=== PATIENT | female | born 1960 | race Caucasian/White ===

== ENCOUNTER 2020-07-15 09:21 | Emergency (ER) | payer OTHER, SELFPAY ==
--- NOTE | 2020-07-15 09:43 | ED.ABDPAIN ---
HPI - Abdominal Pain General Chief Complaint: Urogenital-Female Stated Complaint: Right sided lower back pain Time Seen by Provider: 07/15/20 09:42 Source: patient and family Mode of arrival: Ambulatory Limitations: no limitations History of Present Illness HPI narrative: This is a 60-year-old female who comes emergency department with complaint of right-sided back pain. Patient states she does not have any abdominal pain anteriorly. Patient states it came on fairly suddenly about 4 5 days ago. She did have vomiting but has not had any additional. She has had diarrhea once or twice daily. She has not thrown up for the past 2 days. She denies any fevers or chills. She states she has been taking Tylenol regularly around the clock. She denies any chest pain or shortness of breath. She is unaware if she has any rashes or skin changes but states her told her she had some swelling on her skin. Patient denies any dysuria, urgency, frequency or hematuria. She states she takes medication for hypertension. She denies other medical issues. She does have a remote history of low back surgery. She does have a history of prosthetic eye. Patient denies any allergies to medications. She does live out in the [facility] Related Data Previous Rx's Medication Instructions Recorded fluticasone propion-salmeterol 1 puff INH BID #60 dose 10/28/16 [Advair Diskus] lisinopril-hydrochlorothiazide 1 tab PO QDAY #30 tab 10/28/16 albuterol sulfate [Ventolin HFA] 2 puff INH Q4H PRN #3 ea 11/26/16 megestrol 20 mg tablet 40 mg PO DAILY #120 tab 05/29/18 hydrocodone-acetaminophen 1 tab PO Q6H PRN #14 tab 07/15/20 valacyclovir 1,000 mg PO Q8H #21 tab 07/15/20 Allergies Allergy/AdvReac Type Severity Reaction Status Date / Time No Known Drug Allergies Allergy Unknown Verified 07/15/20 09:48 [NO KNOWN DRUG ALLERGIES] Review of Systems Review of Systems ROS Unobtainable: All systems reviewed & are unremarkable except as noted in HPI and below Patient History Medical History Anxiety Deafness in right ear (08/30/16) Essential hypertension (08/30/16) Fatigue due to sleep pattern disturbance (08/30/16) Idiopathic hypersomnia with long sleep time Menorrhagia with irregular cycle Mild persistent asthma without complication (08/30/16) Morbid obesity with body mass index (BMI) of 40.0 to 49.9 (08/30/16) Obstructive sleep apnea Surgical History Status post discectomy Status post surgery (09/15/15) Status post surgery (11/13/16) Family History (Updated 08/04/15 @ 00:00 by Conversion Provider) Father Age: 82 Diabetes mellitus Hypertension Mother Cancer Diabetes mellitus Hypertension Social History Smoking Status: Former smoker Smoking Status: Former smoker Exam Narrative Exam Narrative: GENERAL: Alert and oriented x three, BMI of 33 female in mild distress. HEENT: Head normocephalic, atraumatic, EOMI, pupil is reactive, face symmetric, moist mucous membranes NECK: Supple, full range of motion CARDIOVASCULAR: Regular rate and rhythm without murmurs, rubs or gallops. RESPIRATORY: Breath sounds equal bilaterally, no wheezes rales or rhonchi. ABDOMEN: Soft, nontender. Normoactive bowel sounds all 4 quadrants. No guarding or rebound, rigidity, no mass : No CVA tenderness BACK: No cervical, thoracic or lumbar vertebral point tenderness. Patient has normal range of motion. Patient's pain is located over the area of rash. She does not have pain elsewhere with palpation. Patient's gait is normal. Rectal exam is deferred. EXTREMITIES: Normal range of motion, no clubbing or edema. Neurovascularly intact NEUROLOGICAL: Cranial nerves II through XII grossly intact. Moving all extremities SKIN: Warm, dry, no petechiae, patient does have erythema with 4-5 lesions on her right thoracic region in the T8-9 dermatome with several small vesicles. This correlates with the area of pain for the patient. Initial Vital Signs Initial Vital Signs: Vital Signs Temperature 98.2 F 07/15/20 09:48 Pulse Rate 87 07/15/20 09:48 Respiratory Rate 18 07/15/20 09:48 Blood Pressure 184/96 H 07/15/20 09:48 Pulse Oximetry 97 07/15/20 09:48 Course Orders Ordered: ED Orders 07/15/20 09:44 Complete Blood Count AUTO DIFF Stat Comprehensive Metabolic Panel Stat Lipase Stat Partial Thromboplastin Time Stat Prothrombin Time INR Stat 07/15/20 10:26 renal complete Stat 07/15/20 11:04 Urine Microscopic Stat Discontinued Medications Hydrocodone Bitart/Acetaminophen (Hydrocodone/Acet 5/325 Tablet) 1 tab PO NOW ONE Stop: 07/15/20 12:30 Last Admin: 07/15/20 12:33 Dose: 1 tab Documented by: LARISSA Ketorolac Tromethamine (Ketorolac 60 Mg/2 Ml Vial) 15 mg IV NOW ONE Stop: 07/15/20 10:27 Last Admin: 07/15/20 10:40 Dose: 15 mg Documented by: JOSH Reevaluation(s) Reevaluation #1: Reviewed patient's labs. She states she has chronically had hematuria she has never seen Urology. She has renal cysts which are unchanged on ultrasound imaging today and no obvious sign of kidney stone. Patient does have changes and her area of pain the skin and I suspect she has shingles today. Prescription for valacyclovir as well as some oral pain medication was given. Patient feels much better after pain medication here. We also noted her liver enzymes are mildly elevated. She did states she had wine recently and asked to follow up to have them recheck. She does not have any abdominal tenderness or changes that are suspicious for cause of her pain today. Time: 12:32 Vital Signs Vital signs: Vital Signs - 8 hr 07/15/20 11:17 Pulse Rate 87 Respiratory Rate 20 Blood Pressure 183/93 H Pulse Oximetry 97 MDM - Abdominal Pain Lab Data Attestation: I reviewed the patient's lab results. Result diagrams: 07/15/20 09:44 07/15/20 09:44 Labs: Lab Results 07/15/20 07/15/20 07/15/20 Range/Units 09:44 09:44 09:44 WBC 6.5 (4.5-11.0) X10^3/uL RBC 3.60 L (4.0-5.2) X10^6/uL Hgb 12.1 (12.0-16.0) g/dL Hct 36.1 (36-46) % MCV 100.2 H (80-100) fL MCH 33.7 (26-34) PG MCHC 33.7 (30-36) % RDW 18.7 H (11.6-14.8) % Plt Count 240 (150-400) X10^3/uL Neut % (Auto) 63.3 (50-75) % Lymph % (Auto) 21.6 L (25-40) % Forrest % (Auto) 10.9 (3-14) % Eos % (Auto) 2.7 (2-4) % Baso % (Auto) 1.5 (0-2) % Neut # (Auto) 4100 (7325-5677) /uL Lymph # (Auto) 1400 (6403-6831) /uL Forrest # (Auto) 700 (0-900) /uL Eos # (Auto) 200 (0-450) /uL Baso # (Auto) 100 (0-100) /uL PT 11.3 (10.1-12.7) SECONDS INR 1.0 (0.9-1.3) APTT 34 (26.4-36.2) SECONDS Sodium 136 L (137-145) mmol/L Potassium 4.4 (3.4-5.1) mmol/L Chloride 105 (98-107) mmol/L Carbon Dioxide 24 (22-32) mmol/L BUN 15 (7-17) mg/dL Creatinine 0.95 (0.52-1.04) mg/dL Estimated GFR 59.8 L (>60) mL/min BUN/Creatinine Ratio 15.8 (6-22) Glucose 132 H (80-110) mg/dL Calcium 10.2 (8.4-10.2) mg/dL Total Bilirubin 0.3 (0.2-1.3) mg/dL AST 78 H (14-36) IU/L ALT 78 H (<35) IU/L Alkaline Phosphatase 76 (38-126) U/L Total Protein 8.1 (6.3-8.2) g/dL Albumin 4.3 (3.5-5.0) g/dL Globulin 3.8 (1.7-4.1) g/dL Albumin/Globulin Ratio 1.1 (1.0-2.8) Lipase 273 (23-300) U/L Urine RBC (0-5/HPF) Urine WBC (0-5/HPF) Ur Squamous Epith Cells (0-5/HPF) Urine Bacteria (None) Ur Culture Indicated? 07/15/20 Range/Units 11:04 WBC (4.5-11.0) X10^3/uL RBC (4.0-5.2) X10^6/uL Hgb (12.0-16.0) g/dL Hct (36-46) % MCV (80-100) fL MCH (26-34) PG MCHC (30-36) % RDW (11.6-14.8) % Plt Count (150-400) X10^3/uL Neut % (Auto) (50-75) % Lymph % (Auto) (25-40) % Forrest % (Auto) (3-14) % Eos % (Auto) (2-4) % Baso % (Auto) (0-2) % Neut # (Auto) (8612-5005) /uL Lymph # (Auto) (6975-9033) /uL Forrest # (Auto) (0-900) /uL Eos # (Auto) (0-450) /uL Baso # (Auto) (0-100) /uL PT (10.1-12.7) SECONDS INR (0.9-1.3) APTT (26.4-36.2) SECONDS Sodium (137-145) mmol/L Potassium (3.4-5.1) mmol/L Chloride (98-107) mmol/L Carbon Dioxide (22-32) mmol/L BUN (7-17) mg/dL Creatinine (0.52-1.04) mg/dL Estimated GFR (>60) mL/min BUN/Creatinine Ratio (6-22) Glucose (80-110) mg/dL Calcium (8.4-10.2) mg/dL Total Bilirubin (0.2-1.3) mg/dL AST (14-36) IU/L ALT (<35) IU/L Alkaline Phosphatase (38-126) U/L Total Protein (6.3-8.2) g/dL Albumin (3.5-5.0) g/dL Globulin (1.7-4.1) g/dL Albumin/Globulin Ratio (1.0-2.8) Lipase (23-300) U/L Urine RBC 5-10/hpf H (0-5/HPF) Urine WBC 1-5/hpf (0-5/HPF) Ur Squamous Epith Cells 5-10 /hpf H (0-5/HPF) Urine Bacteria None seen (None) Ur Culture Indicated? Cult not indicated Point of care testing: Urine Dip Bedside Urine Glucose Negative Bedside Urine Bilirubin - Negative Bedside Urine Ketone - Negative Urine Specific [place] 1.015 Bedside Urine Occult Blood +++ Bedside Urine pH 6.0 Bedside Urine Protein ++ 100 Bedside Urine Urobilinogen - Negative Bedside Urine Nitrite - Negative Bedside Urine Leukocytes - Negative Esterase Imaging Data renal US: Radiologist's Impression: [address] [id number] ReportSigned Patient: Love Mixon RMR#: [id number]: [id number]:[id number]/Sex: 60 / FDate of Service: 07/15/20Loc: EDAccession Number: [id number] Procedure: US renal complete Ordering Provider: Sierra Gómez D.O. PROCEDURE: US RENAL COMPLETE INDICATIONS: RIGHT BACK AND FLANK PAIN TECHNIQUE: Real-time scanning was performed of the kidneys and bladder, with image documentation. COMPARISON: None. FINDINGS: Kidneys: Kidneys are normal in size. Right kidney measures 11.6 cm long; left kidney measures 12.1 cm long. Right renal cortical thickness is 1.6 cm; left renal cortical thickness is 1.2 cm. Renal cortical echotexture is normal. No hydronephrosis or nephrolithiasis. No suspicious solid mass lesions. Multiple right-sided simple cysts the largest within the inferior pole measures 3.6 x 3.8 x 3.2 centimeters. Bladder: Pre-void bladder volume is 56 mL. Pre-void images demonstrate no intraluminal masses or stones. On pre-void images, no ureteral jets are noted with color Doppler interrogation. (Of note, ureteral jets may not be detectable in up to 25% of cases due to insufficient differences in specific gravity between ureteral and bladder urine). Miscellaneous: No free pelvic fluid. IMPRESSION: Right renal simple cysts, otherwise unremarkable appearance of the kidneys and bladder. Dictated by: Han Powell D.O. on 07/15/2020 at 11:15 Approved by: Han Powell D.O. on 07/15/2020 at 11:19 [facility] Narrative Medical decision making narrative: This is a 60-year-old female who comes to the emergency department with right thoracic back pain. Patient a rash consistent with shingles and I suspect this is her source of pain she does have hematuria and discussed with patient since she lives very remotely on the [facility] labs and imaging were obtained. Labs show mildly elevated liver enzymes. Patient's labs otherwise do not show any major abnormalities. Shows signs actions or renal ultrasound shows renal cysts which patient was aware of but no obvious signs of stone. Patient had improved with Toradol here in the department. She was given 1 dose of [place] and a prescription for pain medication and valacyclovir. I did recommend that she follow up with Urology because she has had chronic hematuria which she states is not new. Discharge Plan Departure Patient Disposition: Home Clinical Impression: Shingles, Hematuria Instructions: DI for Shingles Activity Restrictions/Additional Instructions: Follow-up with your physician in the next week for recheck. Take antivirals until completely gone. Take 1 tablet every 8 hours x7 days. Prescription was sent to [facility] on [address] You may take ibuprofen up to 800 mg every 8 hours as needed for pain. If this is inadequate you may take the narcotic pain medication as prescribed. Take pain medication as prescribed you may take 1-2 tablets every 6-8 hours as needed. This medication can make you sleepy do not drive, perform hazardous activities or make any major decisions while taking it. This medication also causes constipation so take a stool softener 1-2 times daily until stools are soft and regular. Your urine does show hematuria or blood in her pee. There are cyst on your kidneys which appear unchanged but I would recommend follow-up with Urology for recheck. Also noted is your liver enzymes are slightly elevated today. Would follow up with your primary care they can recheck this in the next several weeks. Please return for fevers, worsening or uncontrolled pain, new chest pain, shortness of breath, lightheadedness or passing out, rashes that is continuing to change or crosses the midline of the body new abdominal or back pain, persistent vomiting, black or bloody stools or difficulty with urination. Prescriptions: New valacyclovir 1 gram tablet 1,000 mg PO Q8H Qty: 21 RF: 0 hydrocodone-acetaminophen 5-325 mg tablet 1 tab PO Q6H PRN (Reason: pain) Qty: 14 RF: 0 No Action lisinopril-hydrochlorothiazide 20 MG/25 MG tablet 1 tab PO QDAY Qty: 30 RF: 2 fluticasone propion-salmeterol [Advair Diskus] 250 MCG/50 MCG blister with device 1 puff INH BID Qty: 60 RF: 2 albuterol sulfate [Ventolin HFA] 90 MCG/PUFF HFA aerosol inhaler 2 puff INH Q4H PRNQty: 3 RF: 2 megestrol 20 mg tablet 40 mg PO DAILY Qty: 120 RF: 1 Referrals: Rubens Short MD [Physician] - William Lee MD [Primary Care Provider] -
[2020-07-15 09:48] VITALS: BP 184/96; PULSE 87; RESP 18; TEMP 36.8; O2SAT 97; BMI 33.3
--- NOTE | 2020-07-15 10:26 | DI.US.S_ITS ---
PROCEDURE: US RENAL COMPLETE INDICATIONS: RIGHT BACK AND FLANK PAIN TECHNIQUE: Real-time scanning was performed of the kidneys and bladder, with image documentation. COMPARISON: None. FINDINGS: Kidneys: Kidneys are normal in size. Right kidney measures 11.6 cm long; left kidney measures 12.1 cm long. Right renal cortical thickness is 1.6 cm; left renal cortical thickness is 1.2 cm. Renal cortical echotexture is normal. No hydronephrosis or nephrolithiasis. No suspicious solid mass lesions. Multiple right-sided simple cysts the largest within the inferior pole measures 3.6 x 3.8 x 3.2 centimeters. Bladder: Pre-void bladder volume is 56 mL. Pre-void images demonstrate no intraluminal masses or stones. On pre-void images, no ureteral jets are noted with color Doppler interrogation. (Of note, ureteral jets may not be detectable in up to 25% of cases due to insufficient differences in specific gravity between ureteral and bladder urine). Miscellaneous: No free pelvic fluid. IMPRESSION: Right renal simple cysts, otherwise unremarkable appearance of the kidneys and bladder. Dictated by: Han Powell D.O. on 07/15/2020 at 11:15 Approved by: Han Powell D.O. on 07/15/2020 at 11:19
[2020-07-15 10:40] LABS: Prothrombin Time 11.3 SECONDS (10.1-12.7)
[2020-07-15] MEDS: KETOROLAC 60 MG/2 ML VIAL 15 MG IV (10:40)
[2020-07-15 10:42] LABS: Add Manual Diff / Slide Review NO; Basophils Absolute Auto 100 /uL (0-100); Basophils Percent Auto 1.5 % (0-2); Eosinophils Absolute Auto 200 /uL (0-450); Eosinophils Percent Auto 2.7 % (2-4); Hematocrit 36.1 % (36-46); Hemoglobin 12.1 g/dL (12.0-16.0); Lymphocytes Absolute Auto 1400 /uL (1100-4500); Lymphocytes Percent Auto 21.6 % (25-40); Mean Corpuscular HGB Conc 33.7 % (30-36); Mean Corpuscular Hemoglobin 33.7 PG (26-34); Mean Corpuscular Volume 100.2 fL (80-100); Monocytes Absolute Auto 700 /uL (0-900); Monocytes Percent Auto 10.9 % (3-14); Neutrophils Absolute Auto 4100 /uL (1500-7000); Neutrophils Percent Auto 63.3 % (50-75); PTT Partial Thromboplastin Tim 34 SECONDS (26.4-36.2); Platelet Count 240 X10^3/uL (150-400); Red Cell Distribution Width 18.7 % (11.6-14.8); White Blood Cell Count 6.5 X10^3/uL (4.5-11.0)
[2020-07-15 10:51] LABS: Alanine Aminotransferase 78 IU/L (<35); Albumin 4.3 g/dL (3.5-5.0); Albumin Globulin Ratio 1.1 (1.0-2.8); Alkaline Phosphatase 76 U/L (38-126); Aspartate Aminotransferase 78 IU/L (14-36); BUN Creatinine Ratio 15.8 (6-22); Bilirubin Total 0.3 mg/dL (0.2-1.3); Blood Urea Nitrogen 15 mg/dL (7-17); Calcium 10.2 mg/dL (8.4-10.2); Carbon Dioxide 24 mmol/L (22-32); Chloride 105 mmol/L (98-107); Estimated Glomerular Filt Rate 59.8 mL/min (>60); Globulin 3.8 g/dL (1.7-4.1); Glucose 132 mg/dL (80-110); HEMOLYSIS 15 (0-50); Lipase 273 U/L (23-300); Potassium 4.4 mmol/L (3.4-5.1); Sodium 136 mmol/L (137-145); Total Protein 8.1 g/dL (6.3-8.2)
[2020-07-15 11:06] LABS: Bacteria Urine None Seen
[2020-07-15 11:15] LABS: RBC Urine 5-10/HPF (0-5/HPF)
[2020-07-15 11:16] LABS: Culture Indicated Urine Cult Not Indicated; Squamous Epithelial Cell Urine 5-10 /HPF (0-5/HPF); WBC Urine 1-5/HPF (0-5/HPF)
[2020-07-15 11:17] VITALS: BP 183/93; PULSE 87; RESP 20; O2SAT 97
[2020-07-15] MEDS: HYDROCODONE/ACET 5/325 TABLET 1 TAB PO (12:33)
== END 2020-07-15 12:40 | disposition home or self-care (01) ==
PROVIDERS: Emergency Provider Emergency Medicine; PCP Family Medicine
DX: B02.9 Zoster without complications (principal); R31.9 Hematuria, unspecified; R19.7 Diarrhea, unspecified
CPT/HCPCS: 36415; 76770; 80053; 81003; 81015; 83690; 85025; 85610; 85730; 96374; 99284; J1885

== ENCOUNTER 2021-05-30 18:18 | Observation (INO) | payer OTHER, MEDICAID, SELFPAY ==
[2021-05-30] VITALS (9 sets, daily range): BP systolic 160–184; BP diastolic 72–94; PULSE 81–100; RESP 10–22; TEMP 36.8–36.9; O2SAT 95–100; BMI 44.8
--- NOTE | 2021-05-30 18:34 | DI.RAD.S_ITS ---
PROCEDURE: XR CHEST 1V INDICATIONS: chest pain TECHNIQUE: One view of the chest was acquired. COMPARISON: None. FINDINGS: Surgical changes and devices: None. Lungs and pleura: Lungs are clear. No pleural effusions or pneumothorax. Mediastinum: Mediastinal contours appear normal. Heart size is normal. Bones and chest wall: No suspicious bony lesions. Overlying soft tissues appear unremarkable. IMPRESSION: No acute cardiopulmonary disease. Dictated by: Claribel Tierney M.D. on 05/30/2021 at 19:46 Approved by: Claribel Tierney M.D. on 05/30/2021 at 19:46
--- NOTE | 2021-05-30 18:38 | DI.CT.S_ITS ---
PROCEDURE: CT HEAD/BRAIN WO CON INDICATIONS: confusion with right eye drooping TECHNIQUE: Noncontrast 4.5 mm thick angled axial sections acquired from the foramen magnum to the vertex, with coronal and sagittal reformats. For radiation dose reduction, the following was used: automated exposure control, adjustment of mA and/or kV according to patient size. COMPARISON: None. FINDINGS: Image quality: Excellent. CSF spaces: Basal cisterns are patent. No extra-axial fluid collections. Ventricles are normal in size and shape. Brain: No midline shift. No intracranial masses or hemorrhage. Chi-white matter interface is normal. Minimal encephalomalacia and gliosis noted in the inferior right frontal lobe. Skull and face: Calvarium and visualized facial bones are intact, without suspicious lesions. Right orbital globe prosthesis noted in place. Sinuses: Visualized sinuses and mastoids are clear. 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 Right globe prosthesis in place Approved by: Armand Byers M.D. on 05/30/2021 at 18:04
--- NOTE | 2021-05-30 18:43 | DI.RAD.S_ITS ---
PROCEDURE: XR FOOT RT MIN 3V INDICATIONS: Bruising TECHNIQUE: Three views of the foot were acquired. COMPARISON: None. FINDINGS: Bones: No fractures or dislocations. No suspicious bony lesions. Moderate size plantar calcaneal spur. There are moderate degenerative changes at the 1st TMT and mild degenerative changes at the 1st MTP joint. Soft tissues: No tibiotalar joint effusion. Achilles tendon appears normal. IMPRESSION: 1. No visible fractures. 2. Degenerative changes along the medial foot. Dictated by: Claribel Tierney M.D. on 05/30/2021 at 19:42 Approved by: Claribel Tierney M.D. on 05/30/2021 at 19:44
--- NOTE | 2021-05-30 18:43 | DI.RAD.S_ITS ---
PROCEDURE: XR FOOT LT MIN 3V INDICATIONS: Bruising TECHNIQUE: Three views of the foot were acquired. COMPARISON: None. FINDINGS: Bones: No fractures or dislocations. No suspicious bony lesions. Moderate degenerative change at the 1st MTP joint. Moderate plantar calcaneal spur. Soft tissues: No tibiotalar joint effusion. Achilles tendon appears normal. IMPRESSION: 1. No visible fractures. 2. Degenerative change at the 1st MTP joint. 3. If there is continued concern for occult fracture, MR of the foot is recommended to assess for acute edema. Dictated by: Claribel Tierney M.D. on 05/30/2021 at 19:44 Approved by: Claribel Tierney M.D. on 05/30/2021 at 19:46
--- NOTE | 2021-05-30 19:19 | PC.NURSE ---
Pt confused and poor historian. states she fell about 2 days ago although they cannot remember. she was brought to [facility] from [facility]. she was to be DC's to a SNF however she refused and instead went home, she arrives today with weakness, increased confusion, bruising all over body. c/o pain in her back and her L leg. IV placed and labs drawn, attached to cardiac monitoring, rec'd CT head and XRs of feet for extensive bruising and swelling. able to answer simple questions. SRIRAMRNelida
[2021-05-30 19:28] LABS: Add Manual Diff / Slide Review NO; Basophils Absolute Auto 100 /uL (0-100); Basophils Percent Auto 0.9 % (0-2); Eosinophils Absolute Auto 100 /uL (0-450); Eosinophils Percent Auto 1.3 % (2-4); Hematocrit 26.1 % (36-46); Hemoglobin 8.7 g/dL (12.0-16.0); Lymphocytes Absolute Auto 1400 /uL (1100-4500); Lymphocytes Percent Auto 14.8 % (25-40); Mean Corpuscular HGB Conc 33.4 % (30-36); Mean Corpuscular Hemoglobin 36.5 PG (26-34); Mean Corpuscular Volume 109.3 fL (80-100); Monocytes Absolute Auto 600 /uL (0-900); Monocytes Percent Auto 6.4 % (3-14); Neutrophils Absolute Auto 7300 /uL (1500-7000); Neutrophils Percent Auto 76.6 % (50-75); Platelet Count 599 X10^3/uL (150-400); Red Blood Cell Count 2.39 X10^6/uL (4.0-5.2); Red Cell Distribution Width 26.8 % (11.6-14.8); White Blood Cell Count 9.5 X10^3/uL (4.5-11.0)
[2021-05-30 19:33] LABS: Ammonia (NH3) < 9 umol/L (9-30)
--- NOTE | 2021-05-30 19:36 | ED.WEAKNESS ---
HPI - Weakness General Chief complaint: Weakness Stated complaint: weakness Time Seen by Provider: 05/30/21 19:04 Source: EMS Mode of arrival: EMS History of Present Illness HPI Narrative: Patient brought in baths from home. Lives at [facility]. [facility]. She was monitored there for GI bleed. Was seen by gastroenterology. Patient was very weak a few days ago and was flown from [facility] to [facility]. She was urged to stay for balance of her treatment. She states she went home today against medical advice. I spoke with , Yehuda, by phone, she was not home very long, she passed out in the kitchen. She has felt dizzy and lightheaded before falling. Denies any head pain or neck pain. Has diffuse bruising to the lower extremities. At this time trying to get more information from [facility]. Whether patient got EGD and colonoscopy or transfusions. Related Data Home Medications Medication Instructions Recorded Confirmed carvedilol 12.5 mg tablet 12.5 mg PO BID 01/04/21 lisinopril 40 mg tablet 40 mg PO DAILY 02/01/21 02/01/21 Previous Rx's Medication Instructions Recorded fluticasone 250 mcg-salmeterol 50 1 puff INH BID #60 dose 10/28/16 mcg/dose blistr powdr for inhalation (Advair Diskus) lisinopril 20 1 tab PO QDAY #30 tab 10/28/16 mg-hydrochlorothiazide 25 mg tablet albuterol sulfate 90 mcg/actuation 2 puff INH Q4H PRN #3 ea 11/26/16 aerosol inhaler (Ventolin HFA) megestrol 20 mg tablet 40 mg PO DAILY #120 tab 05/29/18 valacyclovir 1 gram tablet 1,000 mg PO Q8H #21 tab 07/25/20 Allergies Allergy/AdvReac Type Severity Reaction Status Date / Time aspirin Allergy Unknown Verified 05/30/21 18:54 codeine Allergy Unknown Verified 05/30/21 18:54 hydrocodone Allergy Unknown Verified 05/30/21 18:54 Review of Systems Review of Systems Narrative: GENERAL: Denies chills, positive for fatigue, malaise, negative for fever, sweats. HEENT: Denies sinus pain, ear pain, sore throat RESPIRATORY: Denies dyspnea, cough CARDIOVASCULAR: Denies chest pain, palpitations GASTROINTESTINAL: Denies nausea, vomiting, abdominal pain, negative for bloody or black stools : Denies dysuria, frequency, hematuria MUSCULOSKELETAL: denies muscle or bony pain SKIN: Denies rash, skin lesions NEUROLOGIC: Denies weakness, numbness ROS Unobtainable: All systems reviewed & are unremarkable except as noted in HPI and below Patient History Medical History Anxiety Deafness in right ear (08/30/16) Essential hypertension (08/30/16) Fatigue due to sleep pattern disturbance (08/30/16) Idiopathic hypersomnia with long sleep time Menorrhagia with irregular cycle Mild persistent asthma without complication (08/30/16) Morbid obesity with body mass index (BMI) of 40.0 to 49.9 (08/30/16) Obstructive sleep apnea Surgical History Status post discectomy Status post surgery (09/15/15) Status post surgery (11/13/16) Family History Father Age: 83 Diabetes mellitus Hypertension Mother Cancer Diabetes mellitus Hypertension Social History household members: spouse Smoking Status: Former smoker alcohol intake: current Smoking Status: Former smoker alcohol intake frequency: a few times a month Substance Use Type: marijuana Exam Narrative Exam Narrative: GENERAL: in no distress, not toxic not dyspneic HEAD: Normocephalic. EYES: Pupils equal round No scleral icterus. ENT: Mucous membranes moist. NECK: Trachea midline. CARDIOVASCULAR: Regular rate and rhythm without murmurs RESPIRATORY: Clear to auscultation. Breath sounds equal bilaterally. No wheezes, rales, or rhonchi. GASTROINTESTINAL: Abdomen soft, non-tender EXTREMITIES: No gross deformities. Diffuse bruising lower extremities from knees to toes. BACK: No flank tenderness. NEURO: AOx3. SKIN: Warm and dry, no bruising on the face back chest abdomen upper extremities. PSYCH: Not anxious, is cooperative Initial Vital Signs Initial Vital Signs: Vital Signs Pulse Rate 96 H 05/30/21 18:25 Respiratory Rate 10 L 05/30/21 18:25 Pulse Oximetry 100 03/02/22 18:25 Course Orders Ordered: ED Orders 05/30/21 18:34 XR chest 1V Stat Partial Thromboplastin Time Stat Prothrombin Time INR Stat EKG-12 Lead Stat 05/30/21 18:38 CT head/brain wo con Stat 05/30/21 18:43 XR foot LT min 3V Stat XR foot RT min 3V Stat 05/30/21 18:55 COVID19 -Nasal swab/Pre-Proc Stat 05/30/21 19:10 Ammonia (NH3) Stat Complete Blood Count AUTO DIFF Stat Comprehensive Metabolic Panel Stat ETOH [Ethanol (ETOH)] Stat Lipase Stat Magnesium Stat Troponin & CK Cardiac Panel Stat 05/30/21 19:39 XR tibia fibula LT 2V Stat Acetaminophen (Acetaminophen 325 Mg Tablet) 650 mg PO Q6HR THERESE Last Admin: 05/31/21 00:48 Dose: 650 mg Documented by: CHIDI Hydrocodone Bitart/Acetaminophen (Hydrocodone/Acet 10/325 Tablet) 1 tab PO Q4HR PRN PRN Reason: Pain, Severe (7-10) Albuterol (Albuterol 2.5 Mg/3 Ml Neb (Adult)) 2.5 mg INH Q4H PRN PRN Reason: Wheezing Carvedilol (Carvedilol 12.5 Mg Tablet) 12.5 mg PO BID [facility] Docusate Sodium (Docusate 100 Mg Capsule) 100 mg PO BID [facility] Enoxaparin Sodium (Enoxaparin 40 Mg/0.4 Ml Syringe) 40 mg SUBCUT DAILY [facility] Lisinopril (Lisinopril 20 Mg Tablet) 40 mg PO DAILY [facility] Morphine Sulfate (Morphine 2 Mg/Ml Inj) 2 mg IV Q4H PRN PRN Reason: Breakthrough pain only (8-10) Last Admin: 05/31/21 00:51 Dose: 2 mg Documented by: CHIDI Naloxone HCl (Naloxone 0.4 Mg/Ml Vial) 0.2 mg IV Q2MIN PRN PRN Reason: Opiate Reversal Ondansetron HCl (Ondansetron 4 Mg/2 Ml Inj) 4 mg IV Q8HR PRN PRN Reason: Nausea And Vomiting Discontinued Medications Sodium Chloride (Normal Saline 0.9%) 500 mls @ 1,000 mls/hr IV BOLUS ONE Stop: 05/30/21 22:03 Last Infusion: 05/30/21 23:00 Dose: 0 mls/hr Documented by: Admin: 05/30/21 21:36 Dose: 1,000 mls/hr Documented by: CRISTAL Reevaluation(s) Reevaluation #1: I did speak with . He is not a good historian. He cannot recall patient came home today or 2 days ago. He is unsure which she all had done. The same is true with the patient, she cannot recall what was done with a she went home. Consultations Consultation #1: Spoke with hospitalist here. dr almonte, will see patient and evaluate for admission Time: 21:55 Vital Signs Vital signs: Vital Signs - 8 hr 05/30/21 18:25 05/30/21 18:27 05/30/21 18:30 Temperature 98.5 F Pulse Rate 96 H 100 H 92 H Respiratory Rate 10 L 12 12 Blood Pressure 160/72 H 160/72 H Pulse Oximetry 100 100 100 05/30/21 19:03 05/30/21 19:10 05/30/21 19:15 Temperature Pulse Rate 93 H 92 H 92 H Respiratory Rate 20 20 14 Blood Pressure 178/82 H 182/81 H Pulse Oximetry 99 100 99 05/30/21 20:00 Temperature Pulse Rate 81 Respiratory Rate 22 Blood Pressure 182/92 H Pulse Oximetry 95 MDM - Weakness Lab Data Result diagrams: 05/30/21 19:10 05/30/21 19:10 Labs: Lab Results 05/30/21 05/30/21 05/30/21 Range/Units 18:34 18:55 19:10 WBC 9.5 (4.5-11.0) X10^3/uL RBC 2.39 L (4.0-5.2) X10^6/uL Hgb 8.7 L (12.0-16.0) g/dL Hct 26.1 L (36-46) % MCV 109.3 H (80-100) fL MCH 36.5 H (26-34) PG MCHC 33.4 (30-36) % RDW 26.8 H (11.6-14.8) % Plt Count 599 H (150-400) X10^3/uL Neut % (Auto) 76.6 H (50-75) % Lymph % (Auto) 14.8 L (25-40) % [place] % (Auto) 6.4 (3-14) % Eos % (Auto) 1.3 L (2-4) % Baso % (Auto) 0.9 (0-2) % Neut # (Auto) 7300 H (6802-4322) /uL Lymph # (Auto) 1400 (1027-7788) /uL [place] # (Auto) 600 (0-900) /uL Eos # (Auto) 100 (0-450) /uL Baso # (Auto) 100 (0-100) /uL RBC Morphology See below Polychromasia 1+ H Anisocytosis 2+ H Macrocytosis 1+ H PT 12.6 (10.1-12.7) SECONDS INR 1.1 (0.9-1.3) APTT 29 (26.4-36.2) SECONDS Sodium (137-145) mmol/L Potassium (3.4-5.1) mmol/L Chloride (98-107) mmol/L Carbon Dioxide (22-32) mmol/L BUN (7-17) mg/dL Creatinine (0.52-1.04) mg/dL Estimated GFR (>60) mL/min BUN/Creatinine Ratio (6-22) Glucose (80-110) mg/dL Calcium (8.4-10.2) mg/dL Magnesium (1.6-2.3) mg/dL Total Bilirubin (0.2-1.3) mg/dL AST (14-36) IU/L ALT (<35) IU/L Alkaline Phosphatase (38-126) U/L Ammonia (9-30) umol/L Total Creatine Kinase (30-135) U/L CK-MB (CK-2) CK-MB (CK-2) Rel Index Troponin I (0.01-0.034) ng/mL Total Protein (6.3-8.2) g/dL Albumin (3.5-5.0) g/dL Globulin (1.7-4.1) g/dL Albumin/Globulin Ratio (1.0-2.8) Lipase (23-300) U/L Ethyl Alcohol ( - 10) mg/dL SARS-CoV-2 (PCR) Negative (Negative) 05/30/21 05/30/21 05/30/21 Range/Units 19:10 19:10 19:10 WBC (4.5-11.0) X10^3/uL RBC (4.0-5.2) X10^6/uL Hgb (12.0-16.0) g/dL Hct (36-46) % MCV (80-100) fL MCH (26-34) PG MCHC (30-36) % RDW (11.6-14.8) % Plt Count (150-400) X10^3/uL Neut % (Auto) (50-75) % Lymph % (Auto) (25-40) % [place] % (Auto) (3-14) % Eos % (Auto) (2-4) % Baso % (Auto) (0-2) % Neut # (Auto) (8231-4520) /uL Lymph # (Auto) (8840-5161) /uL [place] # (Auto) (0-900) /uL Eos # (Auto) (0-450) /uL Baso # (Auto) (0-100) /uL RBC Morphology Polychromasia Anisocytosis Macrocytosis PT (10.1-12.7) SECONDS INR (0.9-1.3) APTT (26.4-36.2) SECONDS Sodium 140 (137-145) mmol/L Potassium 3.2 L (3.4-5.1) mmol/L Chloride 109 H (98-107) mmol/L Carbon Dioxide 27 (22-32) mmol/L BUN 6 L (7-17) mg/dL Creatinine 0.89 (0.52-1.04) mg/dL Estimated GFR > 60.0 (>60) mL/min BUN/Creatinine Ratio 6.7 (6-22) Glucose 114 H (80-110) mg/dL Calcium 8.9 (8.4-10.2) mg/dL Magnesium 1.7 (1.6-2.3) mg/dL Total Bilirubin 0.4 (0.2-1.3) mg/dL AST 60 H (14-36) IU/L ALT 35 H (<35) IU/L Alkaline Phosphatase 115 (38-126) U/L Ammonia < 9 L (9-30) umol/L Total Creatine Kinase < 20 L (30-135) U/L CK-MB (CK-2) TNP CK-MB (CK-2) Rel Index TNP Troponin I < 0.012 (0.01-0.034) ng/mL Total Protein 6.6 (6.3-8.2) g/dL Albumin 3.1 L (3.5-5.0) g/dL Globulin 3.5 (1.7-4.1) g/dL Albumin/Globulin Ratio 0.9 L (1.0-2.8) Lipase 93 (23-300) U/L Ethyl Alcohol < 10 ( - 10) mg/dL SARS-CoV-2 (PCR) (Negative) Imaging Data CT scan - head: Radiologist Impression: [address] [address] [address] Scan Report Signed Patient: Love Mixon MR#: [id number] : 1960 Acct:[id number] Age/Sex: 60 / F Date of Service: 05/30/21 Loc: ED Accession Number: [id number] ?? Procedure: CT head/brain wo con Ordering Provider: Sandra Dyer D.O. PROCEDURE:? CT HEAD/BRAIN WO CON ? INDICATIONS:? confusion with right eye drooping ? TECHNIQUE:? Noncontrast 4.5 mm thick angled axial sections acquired from the foramen magnum to the vertex, with coronal and sagittal reformats.? For radiation dose reduction, the following was used:? automated exposure control, adjustment of mA and/or kV according to patient size.? ? COMPARISON:? None. ? FINDINGS:? Image quality:? Excellent.? ? CSF spaces:? Basal cisterns are patent.? No extra-axial fluid collections.? Ventricles are normal in size and shape.? ? Brain:? No midline shift.? No intracranial masses or hemorrhage.? Chi-white matter interface is normal.? Minimal encephalomalacia and gliosis noted in the inferior right frontal lobe. ? Skull and face:? Calvarium and visualized facial bones are intact, without suspicious lesions.? Right orbital globe prosthesis noted in place. ? Sinuses:? Visualized sinuses and mastoids are clear.? ? IMPRESSION:? ? 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 No acute intracranial hemorrhage or mass effect. ? Right globe prosthesis in place ? ? ? Approved by: Armand Byers M.D. on 05/30/2021 at 18:04? Chest x-ray: Radiologist Impression: [address] [address] XRay Report Signed Patient: Love Mixon MR#: [id number] : 1960 Acct:[id number] Age/Sex: 60 / F Date of Service: 05/30/21 Loc: ED Accession Number: [id number] ?? Procedure: XR chest 1V Ordering Provider: Sandra Dyer D.O. PROCEDURE:? XR CHEST 1V ? INDICATIONS:? chest pain ? TECHNIQUE:? One view of the chest was acquired.? ? COMPARISON:? None. ? FINDINGS:? ? Surgical changes and devices:? None.? ? Lungs and pleura:? Lungs are clear.? No pleural effusions or pneumothorax.? ? Mediastinum:? Mediastinal contours appear normal.? Heart size is normal.? ? Bones and chest wall:? No suspicious bony lesions.? Overlying soft tissues appear unremarkable.? ? IMPRESSION:? No acute cardiopulmonary disease.? ? ? Dictated by: Claribel Tierney M.D. on 05/30/2021 at 19:46 ? ? Approved by: lCaribel Tierney M.D. on 05/30/2021 at 19:46 ? Extremity x-ray #1: Radiologist Impression: [address] [address] XRay Report Signed Patient: Love Mixon MR#: [id number] : 1960 Acct:[id number] Age/Sex: 60 / F Date of Service: 05/30/21 Loc: ED Accession Number: [id number] ?? Procedure: XR foot LT min 3V Ordering Provider: Sandra Dyer D.O. PROCEDURE:? XR FOOT LT MIN 3V ? INDICATIONS:? Bruising ? TECHNIQUE:? Three views of the foot were acquired.? ? COMPARISON:? None. ? FINDINGS:? ? Bones:? No fractures or dislocations.? No suspicious bony lesions.? Moderate degenerative change at the 1st MTP joint.? Moderate plantar calcaneal spur. ? Soft tissues:? No tibiotalar joint effusion.? Achilles tendon appears normal.? ? ? IMPRESSION:? ? 1. No visible fractures. ? 2. Degenerative change at the 1st MTP joint. ? 3. If there is continued concern for occult fracture, MR of the foot is recommended to assess for acute edema.? ? ? Dictated by: Claribel Tierney M.D. on 05/30/2021 at 19:44 ? ? Approved by: Claribel Tierney M.D. on 05/30/2021 at 19:46 ? Extremity x-ray #2: Radiologist Impression: [address] [address] XRay Report Signed Patient: Love Mixon MR#: [id number] : 1960 Acct:[id number] Age/Sex: 60 / F Date of Service: 05/30/21 Loc: ED Accession Number: [id number] ?? Procedure: XR foot RT min 3V Ordering Provider: Sandra Dyer D.O. PROCEDURE:? XR FOOT RT MIN 3V ? INDICATIONS:? Bruising ? TECHNIQUE:? Three views of the foot were acquired.? ? COMPARISON:? None. ? FINDINGS:? ? Bones:? No fractures or dislocations.? No suspicious bony lesions.? Moderate size plantar calcaneal spur.? There are moderate degenerative changes at the 1st TMT and mild degenerative changes at the 1st MTP joint.? ? Soft tissues:? No tibiotalar joint effusion.? Achilles tendon appears normal.? ? ? IMPRESSION:? ? 1. No visible fractures. ? 2. Degenerative changes along the medial foot.? ? ? Dictated by: Claribel Teirney M.D. on 05/30/2021 at 19:42 ? ? Approved by: Claribel Tierney M.D. on 05/30/2021 at 19:44 ? Extremity x-ray #3: Radiologist Impression: [address] [address] XRay Report Signed Patient: Love Mixon MR#: [id number] : 1960 Acct:[id number] Age/Sex: 60 / F Date of Service: 05/30/21 Loc: ED Accession Number: [id number] ?? Procedure: XR tibia fibula LT 2V Ordering Provider: William Mcqueen MD PROCEDURE:? XR TIBIA FIBULA LT 2V ? INDICATIONS:? Pain/injury ? TECHNIQUE:? 2 views of the tibia and fibula were acquired.? ? COMPARISON:? None. ? FINDINGS:? ? Bones:? No fractures or dislocations.? No suspicious bony lesions.? ? Soft tissues:? No suspicious soft tissue calcifications or masses.? ? IMPRESSION:? No acute fracture. No osseous lesion. If symptoms and/or clinical suspicion for pathology persist, further assessment with repeat, or advanced imaging (e.g., CT, MRI, or bone scan) may be helpful for further assessment. ? ? Dictated by: Manisha Martinez M.D. on 05/30/2021 at 20:12 ? ? Approved by: Manisha Martinez M.D. on 05/30/2021 at 20:12 ? ECG Data Interpretation: Normal sinus rhythm normal EKG rate [address] elevation or depression MDM Narrative Medical decision making narrative: Appropriate for admission or transfer. Patient is not safe to go home. Patient not at baseline according to . With cognition. At this time patient not requiring endoscopy. Hemoglobin is stable. I did review faxed discharge summary from [facility]. Patient did have EGD. Patient was recommended to go to SNF, failed PT and OT at their facility. Discharge Plan Departure Patient Disposition: Admitted as Observation Clinical Impression: Altered mental status Admit Date/Time: 05/30/21 22:45 Admit Provider: Yousuf Almonte
[2021-05-30 19:39] LABS: INR 1.1 (0.9-1.3); Prothrombin Time 12.6 SECONDS (10.1-12.7)
--- NOTE | 2021-05-30 19:39 | DI.RAD.S_ITS ---
PROCEDURE: XR TIBIA FIBULA LT 2V INDICATIONS: Pain/injury TECHNIQUE: 2 views of the tibia and fibula were acquired. COMPARISON: None. FINDINGS: Bones: No fractures or dislocations. No suspicious bony lesions. Soft tissues: No suspicious soft tissue calcifications or masses. IMPRESSION: No acute fracture. No osseous lesion. If symptoms and/or clinical suspicion for pathology persist, further assessment with repeat, or advanced imaging (e.g., CT, MRI, or bone scan) may be helpful for further assessment. Dictated by: Manisha Martinez M.D. on 05/30/2021 at 20:12 Approved by: Manisha Martinez M.D. on 05/30/2021 at 20:12
[2021-05-30 19:41] LABS: PTT Partial Thromboplastin Tim 29 SECONDS (26.4-36.2)
[2021-05-30 19:42] LABS: Alanine Aminotransferase 35 IU/L (<35); Albumin 3.1 g/dL (3.5-5.0); Albumin Globulin Ratio 0.9 (1.0-2.8); Alkaline Phosphatase 115 U/L (38-126); Aspartate Aminotransferase 60 IU/L (14-36); BUN Creatinine Ratio 6.7 (6-22); Bilirubin Total 0.4 mg/dL (0.2-1.3); Blood Urea Nitrogen 6 mg/dL (7-17); Calcium 8.9 mg/dL (8.4-10.2); Carbon Dioxide 27 mmol/L (22-32); Chloride 109 mmol/L (98-107); Creatine Kinase < 20 U/L (30-135); Estimated Glomerular Filt Rate > 60.0 mL/min (>60); Ethanol (ETOH) < 10 mg/dL; Globulin 3.5 g/dL (1.7-4.1); Glucose 114 mg/dL (80-110); HEMOLYSIS < 15 (0-50); Lipase 93 U/L (23-300); Magnesium 1.7 mg/dL (1.6-2.3); Potassium 3.2 mmol/L (3.4-5.1); Sodium 140 mmol/L (137-145); Total Protein 6.6 g/dL (6.3-8.2)
[2021-05-30 19:47] LABS: COVID19 -Nasal RAPID Negative (Negative)
[2021-05-30 19:53] LABS: Troponin I < 0.012 ng/mL (0.01-0.034)
[2021-05-30 19:57] LABS: Anisocytosis 2+; Macrocytosis 1+; Polychromasia 1+
[2021-05-30] MEDS: SODIUM CHLORIDE 0.9% 500 ML 1000 ML IV (21:36)
[2021-05-31] VITALS (8 sets, daily range): BP systolic 123–155; BP diastolic 57–82; PULSE 74–95; RESP 16–18; TEMP 36.1–36.8; O2SAT 96–99; BMI 44.8
--- NOTE | 2021-05-31 00:05 | P.HP_ITS ---
History of Present Illness History of Present Illness Date Patient Seen: 05/30/21 Time Patient Seen: 22:30 Chief complaint: weakness Narrative: Pt with history of falls admitted to hospital in [place] then left AMA mid GI workup, somehow got home to [place] where she had some more falls evidently today she is heavily bruised and confused. trauma series was negative for fracture she is disoriented not a good historian not safe to go home. Patient History Medical History Anxiety Deafness in right ear (08/30/16) Essential hypertension (08/30/16) Fatigue due to sleep pattern disturbance (08/30/16) Idiopathic hypersomnia with long sleep time Menorrhagia with irregular cycle Mild persistent asthma without complication (08/30/16) Morbid obesity with body mass index (BMI) of 40.0 to 49.9 (08/30/16) Obstructive sleep apnea Surgical History Status post discectomy Status post surgery (09/15/15) Status post surgery (11/13/16) Family & Social History Family History Father Age: 83 Diabetes mellitus Hypertension Mother Cancer Diabetes mellitus Hypertension Social History: household members spouse Safety & Behavioral: Feels Safe in Current Yes Environment Been Physically Hurt or No Threatened By a Person Suicidal Ideation Description None Suicide Plan Description No Plan Tobacco & Substance use: Tobacco type cigarettes Smoking Status Former smoker alcohol intake current alcohol intake frequency a few times a month Substance Use Type marijuana Meds Home Medications and Allergies Home Medications Medication Instructions Recorded Confirmed Type fluticasone 250 mcg-salmeterol 50 1 puff INH BID #60 dose 10/28/16 07/25/20 Rx mcg/dose blistr powdr for inhalation (Advair Diskus) lisinopril 20 1 tab PO QDAY #30 tab 10/28/16 07/25/20 Rx mg-hydrochlorothiazide 25 mg tablet albuterol sulfate 90 mcg/actuation 2 puff INH Q4H PRN #3 ea 11/26/16 07/25/20 Rx aerosol inhaler (Ventolin HFA) megestrol 20 mg tablet 40 mg PO DAILY #120 tab 05/29/18 07/25/20 Rx valacyclovir 1 gram tablet 1,000 mg PO Q8H #21 tab 07/25/20 07/25/20 Rx carvedilol 12.5 mg tablet 12.5 mg PO BID 01/04/21 History lisinopril 40 mg tablet 40 mg PO DAILY 02/01/21 02/01/21 History Allergies Allergy/AdvReac Type Severity Reaction Status Date / Time aspirin Allergy Unknown Verified 05/30/21 18:54 codeine Allergy Unknown Verified 05/30/21 18:54 hydrocodone Allergy Unknown Verified 05/30/21 18:54 Review of Systems Review of Systems Narrative: all systems reviewed and negative except as otherwise documented in HPI Exam Vital Signs (past 8 hours): - 05/30/21 18:25 05/30/21 18:27 05/30/21 18:30 Temperature 98.5 F Pulse Rate 96 H 100 H 92 H Respiratory Rate 10 L 12 12 Blood Pressure 160/72 H 160/72 H Pulse Oximetry 100 100 100 05/30/21 19:03 05/30/21 19:10 05/30/21 19:15 Temperature Pulse Rate 93 H 92 H 92 H Respiratory Rate 20 20 14 Blood Pressure 178/82 H 182/81 H Pulse Oximetry 99 100 99 05/30/21 20:00 05/30/21 23:05 Temperature Pulse Rate 81 84 Respiratory Rate 22 18 Blood Pressure 182/92 H 184/94 H Pulse Oximetry 95 95 Oxygen Delivery Method Room Air Narrative Exam Narrative: interactive elder laying on bed HENMT Other: bruising on face suggests recent head impact Eyes Periorbital: periorbital findings abnormal (R lateral bruising and swelling) Other: eyes appear grossly ok Resp Other: clear to auscultation bilaterally Cardio Other: regular rate and rhythm S1/S2 GI Other: soft nontender nondistended normal bowel sounds Skin Other: contusions on all extremities and R periocular area Neuro General: patient alert, patient awake and patient confused (not sure of year p resident day or location) Extrem Other: bruised but full ROM Psych Appearance: disheveled Speech and Movement: speech and movement normal Affect: normal affect Attitude: cooperative Objective Labs Result Diagrams: 05/30/21 19:10 05/30/21 19:10 Labs: Laboratory Results - last 24 hr 05/30/21 05/30/21 05/30/21 18:34 18:55 19:10 WBC 9.5 RBC 2.39 L Hgb 8.7 L Hct 26.1 L MCV 109.3 H MCH 36.5 H MCHC 33.4 RDW 26.8 H Plt Count 599 H Neut % (Auto) 76.6 H Lymph % (Auto) 14.8 L [place] % (Auto) 6.4 Eos % (Auto) 1.3 L Baso % (Auto) 0.9 Neut # (Auto) 7300 H Lymph # (Auto) 1400 [place] # (Auto) 600 Eos # (Auto) 100 Baso # (Auto) 100 RBC Morphology See below Polychromasia 1+ H Anisocytosis 2+ H Macrocytosis 1+ H PT 12.6 INR 1.1 APTT 29 Sodium Potassium Chloride Carbon Dioxide BUN Creatinine Estimated GFR BUN/Creatinine Ratio Glucose Calcium Magnesium Total Bilirubin AST ALT Alkaline Phosphatase Ammonia Total Creatine Kinase CK-MB (CK-2) CK-MB (CK-2) Rel Index Troponin I Total Protein Albumin Globulin Albumin/Globulin Ratio Lipase Ethyl Alcohol SARS-CoV-2 (PCR) Negative 05/30/21 05/30/21 05/30/21 19:10 19:10 19:10 WBC RBC Hgb Hct MCV MCH MCHC RDW Plt Count Neut % (Auto) Lymph % (Auto) [place] % (Auto) Eos % (Auto) Baso % (Auto) Neut # (Auto) Lymph # (Auto) [place] # (Auto) Eos # (Auto) Baso # (Auto) RBC Morphology Polychromasia Anisocytosis Macrocytosis PT INR APTT Sodium 140 Potassium 3.2 L Chloride 109 H Carbon Dioxide 27 BUN 6 L Creatinine 0.89 Estimated GFR > 60.0 BUN/Creatinine Ratio 6.7 Glucose 114 H Calcium 8.9 Magnesium 1.7 Total Bilirubin 0.4 AST 60 H ALT 35 H Alkaline Phosphatase 115 Ammonia < 9 L Total Creatine Kinase < 20 L CK-MB (CK-2) TNP CK-MB (CK-2) Rel Index TNP Troponin I < 0.012 Total Protein 6.6 Albumin 3.1 L Globulin 3.5 Albumin/Globulin Ratio 0.9 L Lipase 93 Ethyl Alcohol < 10 SARS-CoV-2 (PCR) Assessment & Plan Assessment & Plan narrative: #s/p multiple falls #confused, disoriented, concussion vs encephalopathy #contusions trauma series negative no fractures found however pt is dioriented and not safe to go home in current state, will need PT/OT eval as well as further neuro assessment. #macrocytic anemia #thrombocytosis i do not think these are necessarily related however could indicate thiamine deficiency or general nutritional issues will supplement and trend #hypokalemia mild supplement and track code: full MDM: diet: regular dvt: lovenox Time Spent With Patient Critical Care time: I spent a total of [] minutes of critical care time on this patient's care today; this time is exclusive of procedural time. Quality VTE Deep Vein Thrombosis/Pulmonary Embolism Present on Admission: No
[2021-05-31] MEDS: ACETAMINOPHEN 325 MG TABLET 650 MG PO ×4 (00:48→23:48)
[2021-05-31] MEDS: MORPHINE 2 MG/ML INJ IV ×3 (00:51→21:27)
[2021-05-31] MEDS: HYDROCODONE/ACET 10/325 TABLET 1 TAB PO ×4 (02:54→17:59)
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
[2021-05-31 05:25] LABS: Basophils Absolute Auto 100 /uL (0-100); Eosinophils Absolute Auto 200 /uL (0-450); Eosinophils Percent Auto 2.4 % (2-4); Hemoglobin 8.3 g/dL (12.0-16.0); Lymphocytes Absolute Auto 1200 /uL (1100-4500); Lymphocytes Percent Auto 16.4 % (25-40); Mean Corpuscular HGB Conc 33.2 % (30-36); Mean Corpuscular Hemoglobin 35.8 PG (26-34); Mean Corpuscular Volume 107.8 fL (80-100); Monocytes Absolute Auto 600 /uL (0-900); Monocytes Percent Auto 7.8 % (3-14); Neutrophils Absolute Auto 5400 /uL (1500-7000); Neutrophils Percent Auto 72.4 % (50-75); Platelet Count 534 X10^3/uL (150-400); Red Blood Cell Count 2.32 X10^6/uL (4.0-5.2); Red Cell Distribution Width 26.8 % (11.6-14.8); White Blood Cell Count 7.4 X10^3/uL (4.5-11.0)
[2021-05-31 05:38] LABS: Add Manual Diff / Slide Review SLIDE REVIEW
[2021-05-31 05:53] LABS: Alanine Aminotransferase 29 IU/L (<35); Albumin 2.7 g/dL (3.5-5.0); Albumin Globulin Ratio 0.8 (1.0-2.8); Alkaline Phosphatase 92 U/L (38-126); Aspartate Aminotransferase 56 IU/L (14-36); BUN Creatinine Ratio 8.8 (6-22); Bilirubin Total 0.4 mg/dL (0.2-1.3); Blood Urea Nitrogen 7 mg/dL (7-17); Calcium 8.5 mg/dL (8.4-10.2); Carbon Dioxide 27 mmol/L (22-32); Chloride 110 mmol/L (98-107); Estimated Glomerular Filt Rate > 60.0 mL/min (>60); Globulin 3.3 g/dL (1.7-4.1); Glucose 121 mg/dL (80-110); HEMOLYSIS < 15 (0-50); Magnesium 1.7 mg/dL (1.6-2.3); Phosphorous 3.6 mg/dL (2.8-4.1); Potassium 3.3 mmol/L (3.4-5.1); Sodium 138 mmol/L (137-145)
[2021-05-31 06:20] LABS: Vitamin B12 766 pg/mL (239-931)
[2021-05-31 06:29] LABS: Anisocytosis 3+; Macrocytosis 2+
[2021-05-31] MEDS: lisinopriL 20 MG TABLET 40 MG PO (08:57)
[2021-05-31] MEDS: carvediloL 12.5 MG TABLET PO ×2 (08:57→21:27)
[2021-05-31] MEDS: DOCUSATE 100 MG CAPSULE PO ×2 (08:58→21:27)
[2021-05-31] MEDS: THIAMINE 100 MG TABLET PO (08:58)
[2021-05-31] MEDS: ENOXAPARIN 40 MG/0.4 ML SYRINGE SUBCUT ×2 (08:58→21:27)
--- NOTE | 2021-05-31 13:47 | PT.IIE ---
Surgical History (Last Reviewed 05/31/21 @ 00:06 by Yousuf Rivera MD) Status post discectomy Status post surgery (09/15/15) Status post surgery (11/13/16) Medical History (Last Reviewed 05/31/21 @ 02:57 by Yousuf Rivera MD) Anxiety Deafness in right ear (08/30/16) Essential hypertension (08/30/16) Fatigue due to sleep pattern disturbance (08/30/16) Idiopathic hypersomnia with long sleep time Menorrhagia with irregular cycle Mild persistent asthma without complication (08/30/16) Morbid obesity with body mass index (BMI) of 40.0 to 49.9 (08/30/16) Obstructive sleep apnea Physical Therapy Inpatient Evaluation/Re-Eval M1 PT/OT-IP Prior Functional Status Start: 05/31/21 17:15 Freq: NEEDED Status: Active Protocol: Document 05/31/21 13:47 AB (Rec: 05/31/21 17:27 [email or web address] Medical Review Prior Functional Status Medical History Reviewed Yes Communication able to make needs known but with short term memory issues Mobility and Gait pt staed that she is indpeendent with all mobilities and ambulation without AD Social History Household Members spouse Living Arrangements House Number of Floors (Floors) One Floor Number of Stairs To Enter/Railing? 3 steps to enter without rails Home Environment Standard Height Toilet,Tub/ Shower Home Equipment Hand Held Shower,Grab Bars In Shower M2 PT-IP Current Condition Start: 05/31/21 17:15 Freq: NEEDED Status: Active Protocol: Document 05/31/21 13:47 AB (Rec: 05/31/21 17:27 AB [id number]) Physical Therapy Current Condition Current Condition Evaluation Date 05/31/21 Treatment Diagnosis falls; weakness; difficulty in walking Onset Date 05/30/21 M3 PT-IP Subjective Start: 05/31/21 17:15 Freq: NEEDED Status: Active Protocol: Document 05/31/21 13:47 AB (Rec: 05/31/21 17:27 AB [email or web address]) Subjective Physical Therapy Visit Type Type Initial Evaluation Visit Start Time 13:47 Visit Stop Time 14:20 Total Visit Minutes 33 Number of MEAT BUTCHER Visits 0 Physical Therapy Visit Comments Patient Comments pt stated that she does not remember how she fell M4 PT-IP Mobility and Gait Start: 05/31/21 17:15 Freq: NEEDED Status: Active Protocol: Document 05/31/21 13:47 AB (Rec: 05/31/21 17:27 AB [email or web address]) PT-Bed Mobility Assessment Supine to Sit Supine to Sit Maximum Assistance,Head of Bed Elevated,Bedrails Sit to Supine Sit to Supine Moderate Assistance,1 Person Assistance,Bedrails Scooting Scooting to Edge of Bed Standby Assistance PT-Transfer Assessment Sit to and From Stand Sit to and from Stand Minimal Assistance,1 Person Assistance,Use of Upper Extremities Equipment Transfer Assistive Device Gait Belt,Front Wheeled Walker Orthotic/Prosthetic Devices or Brace: No Comments Mobility Comments pt supine in bed. pt with h/o fall and does not remember how she fell. BP monitored. BP in supine: 91/45. completed supine to sit max A and max cues and able to sit on EOB SBA. BP checked: 88/52 . pt agreed to stand and completed sit to stand min A and able to stand using FWW for support min A. BP in standin/35. stated that she feels like she is going to black out. instructed pt to sit down. completed sit to supine mod A. positioned in bed. BP checked in supine: 93 /51. call light and table placed within reach. informed nurse regarding pt's BP. PT-Balance Assessment Sitting Balance and Reactions Static Sitting Balance Ability Good Dynamic Sitting Balance Ability Good Standing Balance and Reactions Static Standing Balance Ability Fair Dynamic Standing Balance Ability Fair Device Used FWW M5 PT-IP Objective Assessments Start: 05/31/21 17:15 Freq: NEEDED Status: Active Protocol: Document 05/31/21 13:47 AB (Rec: 05/31/21 17:27 AB [email or web address]) Orientation Orientation/Cognition Level of Alertness Confusional State Orientation Name Language Function Ability No Deficits Noted Safety Awareness Understands Safety Issues Memory Description Short Term Impaired,Group Home Impaired Gross Range of Motion Lower Extremity ROM Assessment Within Functional Limits Strength Lower Extremity Strength Hip 3+/5 Knee 4-/5 Sensation Assessment Sensation Gross Sensation WNL Muscle Tone Muscle Tone WNL Yes M6 PT-IP Treatment Start: 05/31/21 17:15 Freq: NEEDED Status: Active Protocol: Document 05/31/21 13:47 AB (Rec: 05/31/21 17:27 AB [email or web address]) Physical Therapy Treatment Education Education Provided Safety M7 PT-IP Assessment and Plan Start: 05/31/21 17:15 Freq: NEEDED Status: Active Protocol: Document 05/31/21 13:47 AB (Rec: 05/31/21 17:27 AB [id number]) PT Summary Assessment and Plan Potential Rehabilitation Potential Fair Status of Condition at Evaluation Evolving Summary Impairments Pain,ROM,Strength,Balance, Coordination,Sensation,Tone, Cognition,Bed Mobility, Transfers,Gait,Activity Tolerance Assessment Summary pt requiring max A with bed mobility, min A for sit to stand. unable to tolerate much activity with decrease in BP to 71/35 in standing. Nurse is aware. will continue to assess progress. Goals Bed Mobility Goal Independent Transfer Goal Independent,Front Wheeled Walker Gait Goal Independent,Front Wheel Walker Gait Distance 150 Other Goals improve ambulation without AD/ least restrictive AD 150 ft SBA up/down 3 steps without rails CGA with AD/CIVIL DESIGN TECHNICIAN/without AD Days to Meet Goals 10 Frequency of Treatment Frequency Of Treatment Once a Day Treatment Plan Physical Therapy Treatment Plan Bed Mobility Training,Transfer Training,Gait Training, Therapeutic Exercise,Balance Retraining,Discharge Planning, Hot or Cold Pack,Neuromuscular Re-ed,Coordination Retraining ,Manual Therapy Precautions Other Precautions BP, falls Recommendations To Nursing Amount of Assist Needed 1 Person Assist Discharge Recommendations PT Discharge Recommendations SNF Rehab Equipment Needed for Home Before FWW if not safe without AD/pt Discharge goes home Transportation Needs at Discharge Wheelchair/Cabulance
--- NOTE | 2021-05-31 14:18 | P.PN_ITS ---
Subjective Subjective Date Patient Seen: 05/31/21 Interval history: 60-year-old female admitted to the hospital following a fall. She apparently was hospitalized in [place] and left Against Medical Advice during her GI workup. The patient states she tripped and fell. She states she did not sleep well and cannot recall the results of her workup, or the events leading to her fall. She has some bruising on both lower extremities and on her face. Lives on [facility] and is interested in returning home tomorrow. I have requested her records from [place] to review her GI workup. She denies any dizziness, states she tripped on a cord and fell. Exam Vital Signs (past 8 hours): - 05/31/21 07:35 05/31/21 08:57 05/31/21 09:02 Temperature 98.3 F Pulse Rate 95 H 94 H 74 Respiratory Rate 18 16 Blood Pressure 154/72 H 154/72 H Pulse Oximetry 98 99 05/31/21 11:49 Temperature 97.2 F L Pulse Rate 84 Respiratory Rate 18 Blood Pressure 127/57 L Pulse Oximetry 99 Oxygen Delivery Method Room Air,Humidification Oxygen Flow Rate 0 Narrative Exam Narrative: Vague female lying in bed Resp Other: Lungs clear to auscultation Cardio Other: Cardiac exam: Regular rate and rhythm normal S1-S2 GI Other: Abdomen soft nontender nondistended Skin Other: Bruising around the eyes, bruising on both lower extremities Extrem Other: Extremity no edema Objective Labs Result Diagrams: 05/31/21 05:00 05/31/21 05:00 Labs: Laboratory Results - last 24 hr 05/30/21 05/30/21 05/30/21 18:34 18:55 19:10 WBC 9.5 RBC 2.39 L Hgb 8.7 L Hct 26.1 L MCV 109.3 H MCH 36.5 H MCHC 33.4 RDW 26.8 H Plt Count 599 H Neut % (Auto) 76.6 H Lymph % (Auto) 14.8 L [place] % (Auto) 6.4 Eos % (Auto) 1.3 L Baso % (Auto) 0.9 Neut # (Auto) 7300 H Lymph # (Auto) 1400 [place] # (Auto) 600 Eos # (Auto) 100 Baso # (Auto) 100 RBC Morphology See below Polychromasia 1+ H Anisocytosis 2+ H Macrocytosis 1+ H PT 12.6 INR 1.1 APTT 29 Sodium Potassium Chloride Carbon Dioxide BUN Creatinine Estimated GFR BUN/Creatinine Ratio Glucose Calcium Phosphorus Magnesium Total Bilirubin AST ALT Alkaline Phosphatase Ammonia Total Creatine Kinase CK-MB (CK-2) CK-MB (CK-2) Rel Index Troponin I Total Protein Albumin Globulin Albumin/Globulin Ratio Lipase Vitamin B12 Ethyl Alcohol SARS-CoV-2 (PCR) Negative 05/30/21 05/30/21 05/30/21 19:10 19:10 19:10 WBC RBC Hgb Hct MCV MCH MCHC RDW Plt Count Neut % (Auto) Lymph % (Auto) [place] % (Auto) Eos % (Auto) Baso % (Auto) Neut # (Auto) Lymph # (Auto) [place] # (Auto) Eos # (Auto) Baso # (Auto) RBC Morphology Polychromasia Anisocytosis Macrocytosis PT INR APTT Sodium 140 Potassium 3.2 L Chloride 109 H Carbon Dioxide 27 BUN 6 L Creatinine 0.89 Estimated GFR > 60.0 BUN/Creatinine Ratio 6.7 Glucose 114 H Calcium 8.9 Phosphorus Magnesium 1.7 Total Bilirubin 0.4 AST 60 H ALT 35 H Alkaline Phosphatase 115 Ammonia < 9 L Total Creatine Kinase < 20 L CK-MB (CK-2) TNP CK-MB (CK-2) Rel Index TNP Troponin I < 0.012 Total Protein 6.6 Albumin 3.1 L Globulin 3.5 Albumin/Globulin Ratio 0.9 L Lipase 93 Vitamin B12 Ethyl Alcohol < 10 SARS-CoV-2 (PCR) 05/31/21 05/31/21 05/31/21 05:00 05:00 05:00 WBC 7.4 RBC 2.32 L Hgb 8.3 L Hct 25.0 L MCV 107.8 H MCH 35.8 H MCHC 33.2 RDW 26.8 H Plt Count 534 H Neut % (Auto) 72.4 Lymph % (Auto) 16.4 L [place] % (Auto) 7.8 Eos % (Auto) 2.4 Baso % (Auto) 1.0 Neut # (Auto) 5400 Lymph # (Auto) 1200 [place] # (Auto) 600 Eos # (Auto) 200 Baso # (Auto) 100 RBC Morphology See below Polychromasia Anisocytosis 3+ H Macrocytosis 2+ H PT INR APTT Sodium 138 Potassium 3.3 L Chloride 110 H Carbon Dioxide 27 BUN 7 Creatinine 0.80 Estimated GFR > 60.0 BUN/Creatinine Ratio 8.8 Glucose 121 H Calcium 8.5 Phosphorus 3.6 Magnesium 1.7 Total Bilirubin 0.4 AST 56 H ALT 29 Alkaline Phosphatase 92 Ammonia Total Creatine Kinase CK-MB (CK-2) CK-MB (CK-2) Rel Index Troponin I Total Protein 6.0 L Albumin 2.7 L Globulin 3.3 Albumin/Globulin Ratio 0.8 L Lipase Vitamin B12 766 Ethyl Alcohol SARS-CoV-2 (PCR) [facility] Medical History Anxiety Deafness in right ear (08/30/16) Essential hypertension (08/30/16) Fatigue due to sleep pattern disturbance (08/30/16) Idiopathic hypersomnia with long sleep time Menorrhagia with irregular cycle Mild persistent asthma without complication (08/30/16) Morbid obesity with body mass index (BMI) of 40.0 to 49.9 (08/30/16) Obstructive sleep apnea Surgical History Status post discectomy Status post surgery (09/15/15) Status post surgery (11/13/16) Family History Father Age: 83 Diabetes mellitus Hypertension Mother Cancer Diabetes mellitus Hypertension Social History household members: spouse Smoking Status: Former smoker alcohol intake: current Assessment & Plan Assessment & Plan narrative: 60-year-old female with a history of asthma, hypertension, admitted to the hospital following a fall. The patient states she tripped and fell. Awaiting PT evaluation * Trauma series negative for any fracture * Will await PT consultation Macrocytic anemia * B12 level 766, will obtain folate level * Will obtain results from prior hospitalization at [facility] * No evidence of GI bleeding at this time Hypokalemia * Will replace Hypertension * Continue Coreg and lisinopril Asthma * Continue fluticasone and albuterol I have utilized all available methods to review update and confirm the patient's medications Lovenox for DVT prophylaxis Home after PT eval and the patient is deemed safe for returning home Time Spent With Patient Critical Care time: I spent a total of [] minutes of critical care time on this patient's care today; this time is exclusive of procedural time. Quality VTE Deep Vein Thrombosis/Pulmonary Embolism Present on Admission: No
--- NOTE | 2021-05-31 15:04 | CM.DANOTE ---
Patient is a 60 yo female who was admitted on 05/30/21 for Weakness. Pt has PATRICIO HO for insurance and her PCP is William Lee. EMR was reviewed. Per MD, pt was recently at [facility] and left AMA before GI workup could be completed and SNF had been recommended but pt refused. Pt now admitted for GLF at home with AMS and confusion. PT/OT ordered and pending. SW met bedside with pt and explained role and she confirms she lives on [facility] with her who is retired and is a good central office repairer supervisor. Pt states she is typically independent at baseline and has son and DIL also living on [facility]. Pt states she and her spouse do not have a working car as the motor needs to be replaced. Pt states she used [facility] but is unsure how she will transport home. SW discussed possible option of son, who pt thinks could at least meet [facility] [address], and maybe [employer] to [facility] here pending PT/OT eval and pt's mobility needs?? Pt denies any hx of HH or SNF but states she would be agreeable to HH if needed. SW discussed [facility] and would need to confirm they are contracted with her insurance. If SNF recommended, pt's insurance would likely be a barrier as well. SW called [facility] to inquire about [place] and Patricio and they requested pt's facesheet so they can run her insurance to determine coverage for RN/PT. SW faxed facesheet to review. Plan: SW to follow closely for PT/OT eval and recommendations towards determining pt's d/c planning needs. SW to follow for [facility] review of pt's insurance to determine coverage and pt's Patricio will likely be a barrier if SNF needed. SALOME Sanders Discharge Planning/Care Management CM Discharge Assessment Start: 05/31/21 15:00 Freq: Status: Active Protocol: Document 05/31/21 15:00 BF (Rec: 05/31/21 15:04 BF [id number]) Discharge Planning Assessment Assigned Electro Mechanical Solar Technician SALOME Hernandez DPOA/Assigned Designee Name spouse Yehuda Advance Directives? No Advance Directives on File No History Provided By Patient,Medical Record Has Patient been admitted in last 30 No days? Comment Was at [facility] recently and left AMA Prior Living Arrangements House Household Members spouse Type of transporation used prior to Relies on Others admit Comment Their currently vehicle is not working Independent with ADL's Yes Is patient alert and oriented? Yes Caregiver for Another No Comment Pending PT/OT eval and recommendations Barriers to Discharge Yes Comment If SNF recommended, pt's Patricio insurance will be a barrier and may be a barrier to HH Discharge Plan Hospice Transportation Arrangement Spouse does not have a working vehicle and pt may need [employer] and free ride on [place]. Additional Comment Pending PT/OT eval Whiteboard Updated in Patient Room with Yes name and ext. # of Electro Mechanical Solar Technician Review Status In Process Please Provide Date Initial DC 05/31/21 Assessment Was Performed Next Review Type Continued Stay Review
[2021-05-31] MEDS: POTASSIUM CHLORIDE 20 MEQ TAB 40 MEQ PO ×2 (15:18→20:08)
[2021-05-31] MEDS: MAGNESIUM CHLORIDE 64 MG TABLET 128 MG PO (15:18)
[2021-05-31 15:25] LABS: HEMOLYSIS < 15 (0-50); Iron 87 ug/dL (37-170)
[2021-05-31 15:36] LABS: Percent Iron Saturation 37 % (15-50); Total Iron Binding Capacity 234 ug/dL (265-497); Transferrin 167 mg/dL (206-381)
--- NOTE | 2021-05-31 16:20 | OT.IPNOTE ---
Attempted to see pt for OT eval, pt refused and states too tired.
[2021-05-31 16:32] LABS: Folate 3.6 ng/mL (2.76-20.0)
[2021-06-01] VITALS (7 sets, daily range): BP systolic 123–163; BP diastolic 65–70; PULSE 71–90; RESP 16–18; TEMP 36.1–36.8; O2SAT 97–100
[2021-06-01] MEDS: POTASSIUM CHLORIDE IN WATER 10 MEQ/100 ML PIGGYBACK 100 MEQ IV ×2 (00:20→01:22)
[2021-06-01] MEDS: HYDROCODONE/ACET 10/325 TABLET 1 TAB PO ×2 (01:29→09:06)
[2021-06-01 04:59] LABS: Appearance Urine UA CLEAR; Bilirubin Urine UA NEGATIVE (NEGATIVE); Color Urine UA YELLOW; Glucose Urine UA NEGATIVE (Negative); Ketones Urine UA TRACE (NEGATIVE); Leukocyte Esterase Urine UA NEGATIVE (NEGATIVE); Nitrite Urine UA NEGATIVE (Negative); Occult Blood Urine UA 3+ (Negative); Protein Urine UA NEGATIVE (Negative); Specific Gravity Urine UA 1.015 (1.000-1.035); Urobilinogen Urine UA 0.2 E.U./dL (0.2)
[2021-06-01 05:00] LABS: Bacteria Urine Few (2-10); Culture Indicated Urine Cult Not Indicated; Hyaline Casts Urine 1-5/LPF; RBC Urine 5-10/HPF (0-5/HPF); Squamous Epithelial Cell Urine 10-30 /HPF (0-5/HPF); WBC Urine None Seen (0-5/HPF)
[2021-06-01] MEDS: ACETAMINOPHEN 325 MG TABLET 650 MG PO (05:38)
[2021-06-01 05:48] LABS: Add Manual Diff / Slide Review NO; Basophils Absolute Auto 100 /uL (0-100); Eosinophils Absolute Auto 400 /uL (0-450); Hemoglobin 9.1 g/dL (12.0-16.0); Lymphocytes Absolute Auto 1500 /uL (1100-4500); Lymphocytes Percent Auto 19.3 % (25-40); Mean Corpuscular HGB Conc 32.6 % (30-36); Mean Corpuscular Hemoglobin 35.5 PG (26-34); Monocytes Absolute Auto 600 /uL (0-900); Monocytes Percent Auto 7.4 % (3-14); Neutrophils Absolute Auto 5100 /uL (1500-7000); Neutrophils Percent Auto 67.3 % (50-75); Platelet Count 636 X10^3/uL (150-400); Red Blood Cell Count 2.57 X10^6/uL (4.0-5.2); Red Cell Distribution Width 26.4 % (11.6-14.8); White Blood Cell Count 7.6 X10^3/uL (4.5-11.0)
[2021-06-01 05:56] LABS: Magnesium 1.9 mg/dL (1.6-2.3)
[2021-06-01 05:58] LABS: Alanine Aminotransferase 34 IU/L (<35); Albumin 3.2 g/dL (3.5-5.0); Albumin Globulin Ratio 0.9 (1.0-2.8); Alkaline Phosphatase 101 U/L (38-126); Aspartate Aminotransferase 55 IU/L (14-36); BUN Creatinine Ratio 11.2 (6-22); Bilirubin Total 0.4 mg/dL (0.2-1.3); Blood Urea Nitrogen 10 mg/dL (7-17); Calcium 8.8 mg/dL (8.4-10.2); Carbon Dioxide 26 mmol/L (22-32); Chloride 111 mmol/L (98-107); Estimated Glomerular Filt Rate > 60.0 mL/min (>60); Globulin 3.5 g/dL (1.7-4.1); Glucose 108 mg/dL (80-110); HEMOLYSIS < 15 (0-50); Potassium 4.6 mmol/L (3.4-5.1); Sodium 139 mmol/L (137-145); Total Protein 6.7 g/dL (6.3-8.2)
[2021-06-01 06:12] LABS: Anisocytosis 3+; Macrocytosis 2+
[2021-06-01] MEDS: lisinopriL 20 MG TABLET 40 MG PO (09:07)
[2021-06-01] MEDS: ENOXAPARIN 40 MG/0.4 ML SYRINGE SUBCUT (09:07)
[2021-06-01] MEDS: THIAMINE 100 MG TABLET PO (09:07)
[2021-06-01] MEDS: DOCUSATE 100 MG CAPSULE PO ×2 (09:07→22:00)
[2021-06-01] MEDS: carvediloL 12.5 MG TABLET PO (09:07)
--- NOTE | 2021-06-01 09:48 | PC.NURSE ---
Addendum entered by Karli Benitez R.N. 06/01/21 18:18: Patient will not use her call marks, she yells out at staff who pass by her door for little things. Explained to patient that she needs to start using her call light and she states that this does not work, clearly it does as we see the marks light up and hear it. Patient is having some increased confusion. She told this RN that she is not confused and is always like this. She has been pleasant and cooperative with care but does not seem to follow directions all that clearly. Original Note: Patient is more clear this morning. She knows where she is and where she lives at. Familiar with faces. She does have anxiety and sometimes does not make sense. Given vicodin for pain of 8/10 to lower back. Patient has some bruising to both corners of her eyes, and bruises to arms. She is a one to two person assist to get up to the bsc. She was not able to void or have a bowel movement, we need to get a new u/a sent to lab as previous one was contaminated. She is resting comfortably and watching tv. She would like to call her but the phones in patients rooms are not working at this time.
--- NOTE | 2021-06-01 10:45 | PT.IPTN ---
Physical Therapy Treatment Note M2 PT-IP Current Condition Start: 05/31/21 17:15 Freq: NEEDED Status: Active Protocol: Document 06/01/21 10:48 MA (Rec: 06/01/21 11:18 MA [id number]) Physical Therapy Current Condition Current Condition Evaluation Date 05/31/21 Treatment Diagnosis falls; weakness; difficulty in walking Onset Date 05/30/21 M3 PT-IP Subjective Start: 05/31/21 17:15 Freq: NEEDED Status: Active Protocol: Document 06/01/21 10:48 MA (Rec: 06/01/21 11:18 MA [id number]) Subjective Physical Therapy Visit Type Type Treatment Note Visit Start Time 10:05 Visit Stop Time 10:45 Total Visit Minutes 40 Number of FINAL RAIL CUTTER Visits 1 Physical Therapy Visit Comments Patient Comments Pt willing to work with PT but only if she doesn't have to get up. Pt states she is scared and getting up with the nurses this morning made her anxious. Therapy Pain Assessment Pain When Pain Assessed During Mobility Pain Present Pain Present Pain Reported M4 PT-IP Mobility and Gait Start: 05/31/21 17:15 Freq: NEEDED Status: Active Protocol: Document 06/01/21 10:48 MA (Rec: 06/01/21 11:18 MA [id number]) PT-Bed Mobility Assessment Supine to Sit Supine to Sit Minimal Assistance,1 Person Assistance,Bedrails Sit to Supine Sit to Supine Contact Guard Assistance, Bedrails Scooting Scooting to Edge of Bed Standby Assistance PT-Transfer Assessment Sit to and From Stand Sit to and from Stand Minimal Assistance,1 Person Assistance,Use of Upper Extremities Equipment Transfer Assistive Device Gait Belt,Front Wheeled Walker Orthotic/Prosthetic Devices or Brace: No Comments Mobility Comments Pt requires Min A for supine> sit this session and CGA for sit>supine. She is able to scoot in bed SBA. Once seated EOB, pt is very anxious about falling. Used FWW and hand rail for pt to feel more secure when she performs exercises seated EOB. Pt needed encouragment to try sit <>stand with FWW and gait belt with Min A for standing. After ~1 min of standing, pt c/o dizziness and is able to sit CGA. Dizziness subsides after ~2 min seated and pt's BP is 104/73 seated EOB. PT-Balance Assessment Sitting Balance and Reactions Static Sitting Balance Ability Good Dynamic Sitting Balance Ability Good Standing Balance and Reactions Static Standing Balance Ability Fair Dynamic Standing Balance Ability Fair Device Used FWW M5 PT-IP Objective Assessments Start: 05/31/21 17:15 Freq: NEEDED Status: Active Protocol: Document 05/31/21 13:47 AB (Rec: 05/31/21 17:27 AB [id number]) Orientation Orientation/Cognition Level of Alertness Confusional State Orientation Name Language Function Ability No Deficits Noted Safety Awareness Understands Safety Issues Memory Description Short Term Impaired,Resource Conservation Manager Impaired Gross Range of Motion Lower Extremity ROM Assessment Within Functional Limits Strength Lower Extremity Strength Hip 3+/5 Knee 4-/5 Sensation Assessment Sensation Gross Sensation WNL Muscle Tone Muscle Tone WNL Yes M6 PT-IP Treatment Start: 05/31/21 17:15 Freq: NEEDED Status: Active Protocol: Document 06/01/21 10:48 MA (Rec: 06/01/21 11:18 MA [id number]) Physical Therapy Treatment Exercises Exercises Ankle Pumps,Heel Slides, Straight Leg Raises,Seated Knee Flexion/Extension Education Education Provided Safety Other Treatments Other Treatment Performed Supine: ankle pumps, heel slides, SLR x10 ea Seated EOB: LAQ, heel raises, seated marching x10 ea M7 PT-IP Assessment and Plan Start: 05/31/21 17:15 Freq: NEEDED Status: Active Protocol: Document 06/01/21 10:48 MA (Rec: 06/01/21 11:18 MA [id number]) PT Summary Assessment and Plan Potential Rehabilitation Potential Fair Status of Condition at Evaluation Evolving Summary Impairments Pain,ROM,Strength,Balance, Coordination,Sensation,Tone, Cognition,Bed Mobility, Transfers,Gait,Activity Tolerance Assessment Summary Pt is very anxious throughout session and requires encouragement to try new exercises. She is able to start with supine exercises and handout is distributed for pt to continue with ankle pumps, heel slides, and SLR throughout day. Pt is then able to go from supine>sitting EOB with Min A where she performs LAQ, heel raises, and marching in seated with hand rail used for balance. Discussed with pt importance of sitting up to help with blood flow and decrease LBP. Pt is agreeable to trying to sit in room chair in afternoon if two nurses are present for transfer. Nurse notified. Upon standing, pt feels like she is going to pass out and is able to sit back down CGA where BP is taken 104/73. Pt returns CGA from sit>supine with all needs within reach and dhandout of exercicses provided. Goals Bed Mobility Goal Independent Transfer Goal Independent,Front Wheeled Walker Gait Goal Independent,Front Wheel Walker Gait Distance 150 Other Goals improve ambulation without AD/ least restrictive AD 150 ft SBA up/down 3 steps without rails CGA with AD/CARDIOLOGY COORDINATOR/without AD Days to Meet Goals 10 Frequency of Treatment Frequency Of Treatment Once a Day Treatment Plan Physical Therapy Treatment Plan Bed Mobility Training,Transfer Training,Gait Training, Therapeutic Exercise,Balance Retraining,Discharge Planning, Hot or Cold Pack,Neuromuscular Re-ed,Coordination Retraining ,Manual Therapy Precautions Other Precautions BP, falls Recommendations To Nursing Amount of Assist Needed 1 Person Assist,2 Person Assist Discharge Recommendations PT Discharge Recommendations SNF Rehab Equipment Needed for Home Before FWW if not safe without AD/pt Discharge goes home Transportation Needs at Discharge Wheelchair/Cabulance
--- NOTE | 2021-06-01 13:52 | OT.IP.EVAL ---
Past Medical History (Last Reviewed 05/31/21 @ 02:57 by Yousuf Rivera MD) Anxiety Deafness in right ear (08/30/16) Essential hypertension (08/30/16) Fatigue due to sleep pattern disturbance (08/30/16) Idiopathic hypersomnia with long sleep time Menorrhagia with irregular cycle Mild persistent asthma without complication (08/30/16) Morbid obesity with body mass index (BMI) of 40.0 to 49.9 (08/30/16) Obstructive sleep apnea Surgical History (Last Reviewed 05/31/21 @ 00:06 by Yousuf Rivera MD) Status post discectomy Status post surgery (09/15/15) Status post surgery (11/13/16) Occupational Therapy Inpatient Evaluation/Re-Eval M1 PT/OT-IP Prior Functional Status Start: 05/31/21 17:15 Freq: NEEDED Status: Active Protocol: Document 06/01/21 14:02 [facility] (Rec: 06/01/21 14:41 [facility] [id number]) Medical Review Prior Functional Status Medical History Reviewed Yes Communication able to make needs known but with short term memory issues Mobility and Gait pt stated that she is independent with all mobilities and ambulation without AD Activities of Daily Living and IADL's Pt states was completely independent with all ADL and IADL needs. Social History Household Members spouse Living Arrangements House Number of Floors (Floors) One Floor Number of Stairs To Enter/Railing? 3 steps and no rails. Home Environment Standard Height Toilet,Tub/ Shower Home Equipment Hand Held Shower,Grab Bars In Shower M2 OT-IP Current Condition Start: 06/01/21 14:02 Freq: Status: Active Protocol: Document 06/01/21 14:02 [facility] (Rec: 06/01/21 14:41 [facility] [id number]) Occupational Therapy Current Condition Current Condition Evaluation Date 06/01/21 Treatment Diagnosis GLF/ altered mental status Diagnosis Onset Date 05/30/21 M3 OT- IP Subjective and Pain Start: 06/01/21 14:02 Freq: Status: Active Protocol: Document 06/01/21 14:02 [facility] (Rec: 06/01/21 14:41 [facility] [id number]) OT- Subjective Occupational Therapy Visit Type Type Initial Evaluation Visit Start Time 13:10 Visit Stop Time 13:52 Total Visit Minutes 42 Occupational Therapy Visit Comments Patient Comments Pt agreed to get up. Patient/Caregiver Goals Pt wanting to go home. OT Pain Assessment Pain When Pain Assessed At Rest Pain Present Pain Present Pain Reported M4 OT- IP ADL's Start: 06/01/21 14:02 Freq: Status: Active Protocol: Document 06/01/21 14:02 [facility] (Rec: 06/01/21 14:41 [facility] [id number]) OT [id number] Comments OT Self-Feeding Comments Not at meal time. OT ADL-Grooming Comments OT Grooming Comments Pt not wanting to do at this time. OT ADL-Oral Care Comments Oral Care Comments Not performed. OT ADL-Dressing Comments OT Dressing Comments Not performed. OT ADL-Toileting Comments OT Toileting Comments Pt not having to go. OT ADL-Bathing Comments OT Bathing Comments pt refusing M5 OT- IP IADL's Start: 06/01/21 14:02 Freq: Status: Active Protocol: Document 06/01/21 14:02 [facility] (Rec: 06/01/21 14:41 [facility] [id number]) OT-Instrumental Activities of Daily Living Home Safety Awareness Home Safety Comments Pt not thinking well and best for her to assist with all her needs. M6 OT- IP Functional Cognition Start: 06/01/21 14:02 Freq: Status: Active Protocol: Document 06/01/21 14:02 [facility] (Rec: 06/01/21 14:41 [facility] [id number]) Cognitive Factors Limiting Selfcare Function Cognitive Ability Level of Alertness Alert,Confusional State Patient Orientation Name,Place,Situation Attention Span Ability Capable of Focused Attention, Unable to Sustain Attention Ability to Follow Commands Able to Follow One Step Commands with Increased Time, Able to Follow One Step Commands with Repetition Problem Solving Ability Unable to Identify Errors, Needs Assist to Identify Solutions Cognitive Tests SLUMS Pt scored 13/30 which implies dementia, however pt states since her fall has not been sleeping or eating well and realizes not doing mentally now for thinking. Pt did not realize the day of the week, not able to subtract 100-23 in her head or written on the paper, not able to recall any of the 5 words after time passed, pt not able to draw the numbers accurately for spacing and number all on the right side of the clock, and pt only able to answer 2/4 questions right after a paragraph read. Cognitive Comments Cognitive Assessment Comments Pt scored 511 seconds on [place] making Part B which implies severe impairments for visual attention, speed of processing , task switching, executive functioning, and mental flexibility. Pt is aware that she would not drive at this time. OT- Vision and Hearing OT- Hearing Assessment OT- Hearing Assessment WFL OT- Vision Assessment Vision Assessment Comments Pt states wears glasses but feels that she is not seeing as well with her left eye. 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 M7 OT- IP Mobility and Balance Start: 06/01/21 14:02 Freq: Status: Active Protocol: Document 06/01/21 14:02 [facility] (Rec: 06/01/21 14:41 [facility] [id number]) OT- Bed Mobility Assessment Supine to Sit Supine to Sit Assist Standby Assistance Sit to Supine Sit to Supine Assist Standby Assistance OT-Transfer Assessment Sit to and From Stand Sit to and from Stand Contact Guard Assistance Comments Mobility Comments Pt tends to pull up into long sitting and tried to educate pt on log rolling. Pt able to stand with FWW CGA and able to take a few step up to the head of the bed before having to sit down and get back in bed. OT- Balance Assessment Sitting Balance and Reactions Static Sitting Balance Ability Good Dynamic Sitting Balance Ability Fair Standing Balance and Reactions Static Standing Balance Ability Fair M8 OT- IP Objective Assessments Start: 06/01/21 14:02 Freq: Status: Active Protocol: Document 06/01/21 14:02 [facility] (Rec: 06/01/21 14:41 [facility] [id number]) OT Gross Range of Motion Upper Extremity Range of Motion Assessment Bilaterally Impaired ROM Impairments Pt not able to raiswe her arms up ove her head at this time. M9 OT- IP Assessment and Plan Start: 06/01/21 14:02 Freq: Status: Active Protocol: Document 06/01/21 14:02 [facility] (Rec: 06/01/21 14:41 [facility] [id number]) OT Summary Assessment and Plan Potential Rehabilitation Potential Good Analytic Complexity at Evaluation Moderate Summary OT Impairments Pain,Range of Motion,Balance, Functional Cognition, Functional Mobility,Self- Feeding,Grooming,Dressing, Toileting,Bathing,Toilet Transfers,Shower Transfers, Activity Tolerance Progress Towards Goals Slow Progress due to Pain,Slow Progress due to Medical Issues,Slow Progress due to Activity Tolerance,Slow Progress due to Cognition Assessment Summary Pt MOD complexity and main barriers are pain, decreased short term memory, problem solving, unsteady on her feet, and now needing encouragement and assist for needs. Pt would benefit from skilled rehab however pt is insistent on going home. Goals Self-Feeding Goal Independent Grooming Goal Independent Dressing Goal Independent Toileting Goal Independent Bathing Goal Independent Toilet Transfer Goal Independent Shower Transfer Goal Independent Days to Meet Goals 20 Frequency of Treatment Frequency Of Treatment Once a Day Treatment Plan OT Treatment Plan ADL Training,Functional Cognition Training,Functional Mobility,Patient/Family Education,Discharge Planning Other Treatment Recommendations and Next stand at sink with FWW for Treatment Focus grooming needs Discharge Recommendations OT Discharge Recommendations SNF Rehab Transportation Needs at Discharge Wheelchair/Cabulance
--- NOTE | 2021-06-01 14:25 | CM.DPNOTE ---
Faxed/emailed snf referral per Lupe to [facility] [employer] Jenifer Dumont CM Assist.
--- NOTE | 2021-06-01 14:49 | CM.DPNOTE ---
DCP Note Received call from [facility]. They cannot accept patient for services, H+P indicates hx of leaving facility AMA, therapies recommending SNF and patient has [facility] which will not pay for many visits on [facility]. Patient will not have HH services upon DC JW
--- NOTE | 2021-06-01 14:59 | PM.PN.1 ---
Subjective Subjective Date Patient Seen: 06/01/21 Interval history: 60-year-old female admitted to the hospital following recurrentfall. She was hospitalized at [facility] 05/22 to 05/28 due to GI bleed. She had multiple gastric ulcers and reflux esophagitis on EGD thought secondary to chronic NSAID use. She received transfusion. Also noted to have severe folate deficiency and history of MGUS and told to follow-up with Dr. Baez in oncology clinic. Her carvedilol was stopped and lisinopril discontinued due to significant orthostatic hypotension in setting of chronic elevated blood pressure. Also noted to have significant cognitive impairment with score of 16/30 on OT evaluation. At that time PT and OT recommended SNF which patient declined. Patient states she stopped Advil but had been taking aspirin instead. Also it is possible she resumed her previous antihypertensive medications and became more orthostatic resulting in fall. Yesterday with PT BP dropped to 71/35 with standing. Awaiting PT eval from today. Exam Vital Signs (past 8 hours): - 06/01/21 09:29 Temperature 96.9 F L Pulse Rate 88 Respiratory Rate 16 Blood Pressure 124/66 Pulse Oximetry 97 Oxygen Delivery Method Room Air Oxygen Flow Rate 0 Narrative Exam Narrative: General: Alert, NAD Skin: Bruising on right jew, scattered bruising on extremities Lungs: Clear Extremities: No edema Neurological: Affect normal, obvious cognitive impairment in recall of recent events Objective Labs Result Diagrams: 06/01/21 05:25 06/01/21 05:25 Labs: Laboratory Results - last 24 hr 05/31/21 05/31/21 06/01/21 15:00 15:00 04:45 WBC RBC Hgb Hct MCV MCH MCHC RDW Plt Count Neut % (Auto) Lymph % (Auto) Navarro % (Auto) Eos % (Auto) Baso % (Auto) Neut # (Auto) Lymph # (Auto) Navarro # (Auto) Eos # (Auto) Baso # (Auto) RBC Morphology Anisocytosis Macrocytosis Sodium Potassium Chloride Carbon Dioxide BUN Creatinine Estimated GFR BUN/Creatinine Ratio Glucose Calcium Magnesium Iron 87 TIBC 234 L % Saturation 37 Transferrin 167 L Total Bilirubin AST ALT Alkaline Phosphatase Total Protein Albumin Globulin Albumin/Globulin Ratio Folate 3.6 Urine Color Yellow Urine Appearance Clear Urine pH 5.0 Ur Specific Carter 1.015 Urine Protein Negative Urine Glucose (UA) Negative Urine Ketones Trace H Urine Occult Blood 3+ H Urine Nitrate Negative Urine Bilirubin Negative Urine Urobilinogen 0.2 Ur Leukocyte Esterase Negative Urine RBC 5-10/hpf H Urine WBC None seen Ur Squamous Epith Cells 10-30 /hpf H Urine Bacteria Few (2-10) H Hyaline Casts 1-5/lpf Ur Culture Indicated? Cult not indicated 06/01/21 06/01/21 06/01/21 05:25 05:25 05:25 WBC 7.6 RBC 2.57 L Hgb 9.1 L Hct 28.0 L MCV 109.0 H MCH 35.5 H MCHC 32.6 RDW 26.4 H Plt Count 636 H Neut % (Auto) 67.3 Lymph % (Auto) 19.3 L Navarro % (Auto) 7.4 Eos % (Auto) 5.0 H Baso % (Auto) 1.0 Neut # (Auto) 5100 Lymph # (Auto) 1500 Navarro # (Auto) 600 Eos # (Auto) 400 Baso # (Auto) 100 RBC Morphology See below Anisocytosis 3+ H Macrocytosis 2+ H Sodium 139 Potassium 4.6 D Chloride 111 H Carbon Dioxide 26 BUN 10 Creatinine 0.89 Estimated GFR > 60.0 BUN/Creatinine Ratio 11.2 Glucose 108 Calcium 8.8 Magnesium 1.9 Iron TIBC % Saturation Transferrin Total Bilirubin 0.4 AST 55 H ALT 34 Alkaline Phosphatase 101 Total Protein 6.7 Albumin 3.2 L Globulin 3.5 Albumin/Globulin Ratio 0.9 L Folate Urine Color Urine Appearance Urine pH Ur Specific Carter Urine Protein Urine Glucose (UA) Urine Ketones Urine Occult Blood Urine Nitrate Urine Bilirubin Urine Urobilinogen Ur Leukocyte Esterase Urine RBC Urine WBC Ur Squamous Epith Cells Urine Bacteria Hyaline Casts Ur Culture Indicated? [facility] Medical History Anxiety Deafness in right ear (08/30/16) Essential hypertension (08/30/16) Fatigue due to sleep pattern disturbance (08/30/16) Idiopathic hypersomnia with long sleep time Menorrhagia with irregular cycle Mild persistent asthma without complication (08/30/16) Morbid obesity with body mass index (BMI) of 40.0 to 49.9 (08/30/16) Obstructive sleep apnea Surgical History Status post discectomy Status post surgery (09/15/15) Status post surgery (11/13/16) Family History Father Age: 83 Diabetes mellitus Hypertension Mother Cancer Diabetes mellitus Hypertension Social History household members: spouse Smoking Status: Former smoker alcohol intake: current Assessment & Plan Assessment & Plan narrative: 60-year-old female with likely dementia, history of asthma, hypertension, recent bleeding gastric ulcers secondary to NSAID, recent outside hospital discharge presented with recurrent fall 1. Recurrent fall -trauma series negative for fracture -etiology likely medication related due to orthostatic hypotension -stopped Coreg and high-dose lisinopril as per [facility] discharge -lisinopril 5 mg q.d. -continue PT and OT eval -recommend SNF rehab if patient acceptable -patient may need refill of all meds if going home as unclear if filled medications from recent hospital discharge 2. Macrocytic anemia with known chronic folate deficiency and history of MGUS -sees Dr. Baez as outpatient -appears at baseline chronic anemia -B12 normal, current iron studies normal -continue folate, MVI daily 3. Multiple gastric ulcers, esophagitis with recent GI bleed secondary to NSAID -recent EGD showing gastric ulcers and esophagitis, colonoscopy was normal -continue pantoprazole 40 mg b.i.d. -patient counseled to avoid all aspirin, NSAIDs and use Tylenol instead -Tylenol 975 mg t.i.d. for arthritis type pain DVT prophylaxis: Decrease Lovenox to 40 mg q.d. in light of recent bleed Time Spent With Patient Critical Care time: I spent a total of [] minutes of critical care time on this patient's care today; this time is exclusive of procedural time. Quality VTE Deep Vein Thrombosis/Pulmonary Embolism Present on Admission: No
[2021-06-01] MEDS: ACETAMINOPHEN 325 MG TABLET 975 MG PO ×2 (15:02→22:00)
[2021-06-01] MEDS: PANTOPRAZOLE DR 40 MG TABLET PO (22:00)
[2021-06-02] VITALS: BP 155/78; PULSE 83; RESP 18; TEMP 36.7; O2SAT 97
[2021-06-02 02:56] VITALS: BP 136/96; PULSE 93; RESP 18; TEMP 36.3; O2SAT 95
--- NOTE | 2021-06-02 05:35 | PC.NURSE ---
Patient was alert and orientedx4, denies any pain/discomfort. Afebrile, vital signs within acceptable limits. Patient was able to get up to bedside commode with one person assist. Patient safety precautions observed.
[2021-06-02 05:38] LABS: Add Manual Diff / Slide Review NO; Basophils Absolute Auto 100 /uL (0-100); Basophils Percent Auto 1.6 % (0-2); Eosinophils Absolute Auto 300 /uL (0-450); Eosinophils Percent Auto 4.7 % (2-4); Hematocrit 26.7 % (36-46); Hemoglobin 8.6 g/dL (12.0-16.0); Lymphocytes Absolute Auto 1400 /uL (1100-4500); Lymphocytes Percent Auto 19.8 % (25-40); Mean Corpuscular HGB Conc 32.2 % (30-36); Mean Corpuscular Volume 108.5 fL (80-100); Monocytes Absolute Auto 500 /uL (0-900); Monocytes Percent Auto 7.5 % (3-14); Neutrophils Absolute Auto 4700 /uL (1500-7000); Neutrophils Percent Auto 66.4 % (50-75); Platelet Count 654 X10^3/uL (150-400); Red Blood Cell Count 2.47 X10^6/uL (4.0-5.2); Red Cell Distribution Width 26.4 % (11.6-14.8); White Blood Cell Count 7.1 X10^3/uL (4.5-11.0)
[2021-06-02 05:42] LABS: Alanine Aminotransferase 39 IU/L (<35); Albumin Globulin Ratio 0.8 (1.0-2.8); Alkaline Phosphatase 113 U/L (38-126); Aspartate Aminotransferase 81 IU/L (14-36); BUN Creatinine Ratio 13.9 (6-22); Bilirubin Total 0.4 mg/dL (0.2-1.3); Blood Urea Nitrogen 11 mg/dL (7-17); Carbon Dioxide 26 mmol/L (22-32); Chloride 112 mmol/L (98-107); Estimated Glomerular Filt Rate > 60.0 mL/min (>60); Globulin 3.6 g/dL (1.7-4.1); Glucose 113 mg/dL (80-110); HEMOLYSIS < 15 (0-50); Potassium 4.8 mmol/L (3.4-5.1); Sodium 141 mmol/L (137-145); Total Protein 6.6 g/dL (6.3-8.2)
[2021-06-02 06:02] LABS: Anisocytosis 3+; Macrocytosis 2+
[2021-06-02 07:20] VITALS: BP 159/99; PULSE 91; RESP 18; TEMP 36.3; O2SAT 99
[2021-06-02] MEDS: FLUTICASONE PROPIONATE INH (08:00)
[2021-06-02] MEDS: SALMETEROL INH (08:00)
[2021-06-02] MEDS: FLUTICASONE PROPIONATE 1 EACH INH (08:00)
[2021-06-02] MEDS: PANTOPRAZOLE DR 40 MG TABLET PO ×2 (09:42→21:28)
[2021-06-02] MEDS: MULTIVITAMIN 1 TABLET 1 TAB PO (09:42)
[2021-06-02] MEDS: lisinopriL 5 MG TABLET PO (09:43)
[2021-06-02] MEDS: DOCUSATE 100 MG CAPSULE PO ×2 (09:43→21:28)
[2021-06-02] MEDS: ENOXAPARIN 40 MG/0.4 ML SYRINGE SUBCUT (09:43)
[2021-06-02] MEDS: FOLIC ACID 1 MG TABLET PO (09:43)
[2021-06-02] MEDS: ACETAMINOPHEN 325 MG TABLET 975 MG PO ×2 (09:43→21:27)
[2021-06-02] MEDS: CHOLECALCIFEROL (VITAMIN D3) 1,000 UNIT TABLET 2000 UNIT PO (09:43)
--- NOTE | 2021-06-02 10:45 | PT-IP ANOTE ---
Attempted to see pt at 10:45, pt refused therapy stating she has been getting up our of bed independently and ambulating w/o FWW. Refuses to practice stairs, bed mobility, transfers, or ambulation. Refuses FWW for home use and states she will get one from [facility] . States she will seek outpatient rehab on [place] but does not want to participate or cover anything prior to d/c.
--- NOTE | 2021-06-02 11:40 | OT.IPNOTE ---
Pt not wanting to do OT treatment as focused on trying to find a ride home. Pt states her states the engine does not work in the car. Pt nurse aware and was able to get a hold of her to figure out a back up plan. Tried to reassure pt that it is being worked on but pt insistent of trying to make calls herself.
--- NOTE | 2021-06-02 14:27 | PM.PN.1 ---
Subjective Subjective Date Patient Seen: 06/02/21 Interval history: 60-year-old female admitted to the hospital following recurrent fall. She was feeling much better today, improve mobility out of bed and ready to be discharged but could not or refuse to pick her up. As she lives on [place], discharge has been unnecessarly delayed. She was hospitalized at [facility] 05/22 to 05/28 due to GI bleed.? She had multiple gastric ulcers and reflux esophagitis on EGD thought secondary to chronic NSAID use.? She received transfusion.? Also noted to have severe folate deficiency and history of MGUS and told to follow-up with Dr. Baez in oncology clinic.? Her carvedilol was stopped and lisinopril discontinued due to significant orthostatic hypotension in setting of chronic elevated blood pressure.? Also noted to have significant cognitive impairment with score of 16/30 on OT evaluation. ?At that time PT and OT recommended SNF which patient declined. It seems she went home and resumed her previous BP medication regimen and ended up falling. Exam Vital Signs (past 8 hours): - 06/02/21 07:20 Temperature 97.3 F L Pulse Rate 91 H Respiratory Rate 18 Blood Pressure 159/99 H Pulse Oximetry 99 Oxygen Delivery Method Room Air Oxygen Flow Rate 0 Narrative Exam Narrative: General: Alert and cooperative and in no distress Neurological: Improved affect, improved communication Objective Labs Result Diagrams: 06/02/21 05:00 06/02/21 05:00 Labs: Laboratory Results - last 24 hr 06/02/21 06/02/21 05:00 05:00 WBC 7.1 RBC 2.47 L Hgb 8.6 L Hct 26.7 L MCV 108.5 H MCH 35.0 H MCHC 32.2 RDW 26.4 H Plt Count 654 H Neut % (Auto) 66.4 Lymph % (Auto) 19.8 L Avery % (Auto) 7.5 Eos % (Auto) 4.7 H Baso % (Auto) 1.6 Neut # (Auto) 4700 Lymph # (Auto) 1400 Avery # (Auto) 500 Eos # (Auto) 300 Baso # (Auto) 100 RBC Morphology See below Anisocytosis 3+ H Macrocytosis 2+ H Sodium 141 Potassium 4.8 Chloride 112 H Carbon Dioxide 26 BUN 11 Creatinine 0.79 Estimated GFR > 60.0 BUN/Creatinine Ratio 13.9 Glucose 113 H Calcium 9.0 Total Bilirubin 0.4 AST 81 H ALT 39 H Alkaline Phosphatase 113 Total Protein 6.6 Albumin 3.0 L Globulin 3.6 Albumin/Globulin Ratio 0.8 L [facility] Medical History Anxiety Deafness in right ear (08/30/16) Essential hypertension (08/30/16) Fatigue due to sleep pattern disturbance (08/30/16) Idiopathic hypersomnia with long sleep time Menorrhagia with irregular cycle Mild persistent asthma without complication (08/30/16) Morbid obesity with body mass index (BMI) of 40.0 to 49.9 (08/30/16) Obstructive sleep apnea Surgical History Status post discectomy Status post surgery (09/15/15) Status post surgery (11/13/16) Family History Father Age: 83 Diabetes mellitus Hypertension Mother Cancer Diabetes mellitus Hypertension Social History household members: spouse Smoking Status: Former smoker alcohol intake: current Assessment & Plan Assessment & Plan narrative: 60-year-old female with likely dementia, history of asthma, hypertension, recent bleeding gastric ulcers secondary to NSAID, recent outside hospital discharge presented with recurrent fall 1. Recurrent fall -trauma series negative for fracture -etiology likely medication related due to orthostatic hypotension -stopped Coreg and high-dose lisinopril as per [facility] discharge -lisinopril 10 mg q.d. for BP control -PT and OT eval completed -ready for discharge home 2. Macrocytic anemia with known chronic folate deficiency and history of MGUS -sees Dr. Baez as outpatient -appears at baseline chronic anemia -B12 normal, current iron studies normal -continue folate, MVI daily 3. Multiple gastric ulcers, esophagitis with recent GI bleed secondary to NSAID -recent EGD showing gastric ulcers and esophagitis, colonoscopy was normal -continue pantoprazole 40 mg b.i.d. -patient counseled to avoid all aspirin, NSAIDs and use Tylenol instead -Tylenol 975 mg t.i.d. for arthritis type pain DVT prophylaxis:? Decrease Lovenox to 40 mg q.d. in light of recent bleed Time Spent With Patient Critical Care time: I spent a total of [] minutes of critical care time on this patient's care today; this time is exclusive of procedural time. Quality VTE Deep Vein Thrombosis/Pulmonary Embolism Present on Admission: No
[2021-06-02 15:50] VITALS: BP 118/55; BP 157/95; BP 167/94; PULSE 112; PULSE 95; PULSE 96
--- NOTE | 2021-06-02 16:18 | OT.IP.TRT ---
Occupational Therapy Treatment Note M2 OT-IP Current Condition Start: 06/01/21 14:02 Freq: Status: Active Protocol: Document 06/01/21 14:02 [facility] (Rec: 06/01/21 14:41 [facility] [id number]) Occupational Therapy Current Condition Current Condition Evaluation Date 06/01/21 Treatment Diagnosis GLF/ altered mental status Diagnosis Onset Date 05/30/21 M3 OT- IP Subjective and Pain Start: 06/01/21 14:02 Freq: Status: Active Protocol: Document 06/02/21 16:05 [facility] (Rec: 06/02/21 16:18 [facility] [id number]) OT- Subjective Occupational Therapy Visit Type Type Treatment Note Visit Start Time 15:40 Visit Stop Time 15:55 Total Visit Minutes 15 Occupational Therapy Visit Comments Patient Comments Pt wanting to shower. Patient/Caregiver Goals To go home. OT Pain Assessment Pain When Pain Assessed At Rest Pain Present Pain Present Pain Reported M4 OT- IP ADL's Start: 06/01/21 14:02 Freq: Status: Active Protocol: Document 06/02/21 16:05 [facility] (Rec: 06/02/21 16:18 [facility] [id number]) OT ADL-Dressing General Eval Lower Body Dressing Ability Minimal Assistance Areas Needing Assistance Pants/Shorts Comments OT Dressing Comments Pt needing LAKESHA to help pull off her pants off while in bed . OT ADL-Bathing Comments OT Bathing Comments TO attempt showering however pt's BP supine 157/93, sitting 167/94, and when standing pt heavily shaking and dropped to 118/55. Pt states feeling whoozy throughout and weak in her legs when standing. Pt also complaining of left calf and foot pain . Nursing notified. M5 OT- IP IADL's Start: 06/01/21 14:02 Freq: Status: Active Protocol: Document 06/01/21 14:02 [facility] (Rec: 06/01/21 14:41 [facility] [id number]) OT-Instrumental Activities of Daily Living Home Safety Awareness Home Safety Comments Pt not thinking well and best for her to assist with all her needs. M6 OT- IP Functional Cognition Start: 06/01/21 14:02 Freq: Status: Active Protocol: Document 06/02/21 16:05 [facility] (Rec: 06/02/21 16:18 [facility] [id number]) Cognitive Factors Limiting Selfcare Function Cognitive Ability Level of Alertness Confusional State Patient Orientation Name Attention Span Ability Capable of Focused Attention, Unable to Sustain Attention Ability to Follow Commands Able to Follow One Step Commands with Increased Time, Able to Follow One Step Commands with Repetition Problem Solving Ability Unable to Identify Errors, Needs Assist to Identify Solutions Cognitive Tests SLUMS Pt very confused and needing cues for encouragement. Pt needing cues to redirect and to also remember where she lives. M7 OT- IP Mobility and Balance Start: 06/01/21 14:02 Freq: Status: Active Protocol: Document 06/02/21 16:05 [facility] (Rec: 06/02/21 16:18 [facility] [id number]) OT- Bed Mobility Assessment Supine to Sit Supine to Sit Assist Standby Assistance Sit to Supine Sit to Supine Assist Standby Assistance OT-Transfer Assessment Sit to and From Stand Sit to and from Stand Contact Guard Assistance Comments Mobility Comments Pt able to stand to FWW with CGA and then proceeded to shake throughout and having to sit down before BP was completed while standing. OT- Balance Assessment Sitting Balance and Reactions Static Sitting Balance Ability Good Dynamic Sitting Balance Ability Fair Standing Balance and Reactions Static Standing Balance Ability Poor M8 OT- IP Objective Assessments Start: 06/01/21 14:02 Freq: Status: Active Protocol: Document 06/01/21 14:02 [facility] (Rec: 06/01/21 14:41 [facility] [id number]) OT Gross Range of Motion Upper Extremity Range of Motion Assessment Bilaterally Impaired ROM Impairments Pt not able to raise her arms up over her head at this time. M9 OT- IP Assessment and Plan Start: 06/01/21 14:02 Freq: Status: Active Protocol: Document 06/02/21 16:05 [facility] (Rec: 06/02/21 16:18 [facility] [id number]) OT Summary Assessment and Plan Potential Rehabilitation Potential Fair Analytic Complexity at Evaluation Moderate Summary OT Impairments Pain,Range of Motion,Balance, Functional Cognition, Functional Mobility,Self- Feeding,Grooming,Dressing, Toileting,Bathing,Toilet Transfers,Shower Transfers, Activity Tolerance Progress Towards Goals Slow Progress due to Pain,Slow Progress due to Medical Issues,Slow Progress due to Activity Tolerance,Slow Progress due to Cognition Assessment Summary Pt complaining of left calf and foot pain today. Pt's BP dropped during orthostatic readings supine 157/93, sitting 167/94, and standing 118/55 and feeling woozy and more so weak while standing. Nursing notified of her pain and drop in BP. Information also relayed to the Hospitalist. Goals Self-Feeding Goal Independent Grooming Goal Independent Dressing Goal Minimal Assistance Toileting Goal Minimal Assistance Bathing Goal Minimal Assistance Toilet Transfer Goal Standby Assistance Shower Transfer Goal Standby Assistance Days to Meet Goals 20 Frequency of Treatment Frequency Of Treatment Once a Day Treatment Plan OT Treatment Plan ADL Training,Functional Cognition Training,Functional Mobility,Patient/Family Education,Discharge Planning Other Treatment Recommendations and Next stand at sink with FWW for Treatment Focus grooming needs Discharge Recommendations OT Discharge Recommendations SNF Rehab Transportation Needs at Discharge Stretcher/Ambulance
--- NOTE | 2021-06-02 16:20 | PT-IP ANOTE ---
Per RN, hold PT due to low BP today.
--- NOTE | 2021-06-02 17:50 | PC.NURSE ---
Addendum entered by Karli Benitez R.N. 06/02/21 19:22: Patient is resting comfortably. Original Note: Assess-1000- Patient has been discharged from the hospital, and is medically ready to go. aware by phone call this morning, as told him. Patients called multiple times saying that his car has been in the shop for a month or more and that he would be unable to make the trip from [facility] to pick her up. This RN talked to patients multiple times on the phone and he kept repeating the same things over and over. He was not making much sense. stated that she thinks he is drunk. was argumentative on the phone, stated that he would try to call his son or a friend to come and get her but this never happened. Patient [place] be [place] They will take her to her home on [address] and a priority load will be given to them. Patient teary eyed this morning after repeatedly talking to her , she denies any pain or discomfort. Blood pressure slightly low after doing orthostatics when patient stood up. She is asymptomatic and has been told by to drink more water as he thinks this is what is contributing to her hypotension.
[2021-06-02 19:35] VITALS: BP 148/80; PULSE 95; RESP 18; TEMP 36.1; O2SAT 96
[2021-06-02 23:59] VITALS: BP 149/83; PULSE 99; RESP 18; TEMP 36.8; O2SAT 96
[2021-06-03 02:47] VITALS: PULSE 99; RESP 16; O2SAT 96
[2021-06-03 05:20] VITALS: BP 149/80; PULSE 103; RESP 18; TEMP 36.4; O2SAT 93
[2021-06-03 07:52] VITALS: BP 170/89; PULSE 103; RESP 20; TEMP 36.6; O2SAT 100
--- NOTE | 2021-06-03 09:23 | PC.NURSE ---
Pt has received orders to discharge from the hospital and return home. She has no one to pick her up as her is not able or is unavailable. BLS transport has been arranged. Discharge paperwork, instructions and medication administration has been provided and reviewed with this patient. She verbalizes understanding. Pt has been escorted out of the hospital via ambulance at 0925.
--- NOTE | 2021-06-03 09:25 | CM.DPNOTE ---
Addendum entered by SALOME De Los Santos 06/03/21 13:19: ADD: Correction- Patient will not receive HH services from [facility]; [facility] cannot accept patient's James coverage JW Original Note: DC Note Attempted to coordinate this DCP yesterday; patient medically stable. apparently, patient's spouse Yehuda sounded as if he had been drinking heavily, per RN and confirmed by patient, so was not a safe transportation option. In addition, patient's vehicle had not been working. Patient attempted other family and could not get a hold of them. This FLEET SERVICE MANAGER left messages for two [employer], [employer] and [employer], and did not hear back. Placed call to [facility] yesterday afternoon; they could not transport patient home yesterday but did secure a spot this morning at 0915. BLS form completed and signed by Dr Weathers, all DC ppk completed yesterday, DC order updated. Patient aware and agreeable to plan. Placed call to spouse Yehuda who states relief that patient's transport had been arranged for today. Patient cleared by therapy team for return home w/HH. Placed call to [facility], had to LM alerting them that patient discharging home this morning. No DC Summary available at this time Plan: DC home to [facility] today via BLS, spouse awaiting patient's arrival. [facility] to f/u for HH services SALOME Santos
--- NOTE | 2021-06-03 13:45 | P.DS_ITS ---
History of Present Illness History of Present Illness Chief complaint: weakness Narrative: 60-year-old female admitted to the hospital following recurrent fall. She was hospitalized at [facility] 05/22 to 05/28 due to GI bleed.? She had multiple gastric ulcers and reflux esophagitis on EGD thought secondary to chronic NSAID use.? She received transfusion.? Also noted to have severe folate deficiency and history of MGUS and told to follow-up with Dr. Baez in oncology clinic.? Her carvedilol was stopped and lisinopril discontinued due to significant orthostatic hypotension in setting of chronic elevated blood pressure.? Also noted to have significant cognitive impairment with score of 16/30 on OT evaluat ion. ?At that time PT and OT recommended SNF which patient declined.? It seems she went home and resumed her previous BP medication regimen and ended up falling. Discharge Providers Provider Date of admission: 05/30/21 22:45 Discharge Date: 06/03/21 Primary care physician: William Lee MD Consults: 05/31/21 00:02 Consult to Discharge Planning Routine Comment: may need placement not safe to go home Consult to Occupational Therapy Evaluate & Treat Comment: Physician Instructions: Evaluate and treat Consult to Physical Therapy Evaluate & Treat Comment: Physician Instructions: Evaluate and Treat 05/31/21 11:45 Consult to Staff Reporter Routine Comment: 06/01/21 00:11 Consult to Respiratory Therapy Evaluate & Treat Comment: for Cpap Physician Instructions: Evaluate and treat Discharge provider: Cesar Weathers MD Summary Hospital Course Discharge Diagnosis: 1. Recurrent fall 2. Orthostatic hypotension 3. Chronic supine hypertension 4. Chronic macrocytic anemia 5. MGUS 6. Recent GI bleed secondary to NSAID related gastric ulcers 7. Esophagitis noted on recent EGD 8. Cognitive impairment Hospital Course: Patient was noted to be quite orthostatic and although hypertensive when supine blood pressure drops quite significantly with standing. We stopped her lisinopril due to she was orthostatic even on 5 mg a day. She is being discharged on low-dose metoprolol ER 25 mg daily. Also noted her oral fluid intake is not adequate to maintain good hydration status which is contributing to orthostasis. There was no evidence of active bleeding. She was assessed by PT and OT as well. She did have slums score of 16 with OT and this may need to be repeated as outpatient to assess for potential dementia. Status at Discharge Cognitive/behavioral status at discharge: oriented Functional status at discharge: independent ambulation Overall status at discharge: patient is progressing back to baseline Time Spent with Patient Time spent: Less than 30 minutes Exam Vital Signs (past 8 hours): - 06/03/21 07:52 Temperature 97.9 F Pulse Rate 103 H Respiratory Rate 20 Blood Pressure 170/89 H Pulse Oximetry 100 Oxygen Delivery Method Room Air Oxygen Flow Rate 0 Objective Labs Result Diagrams: 06/02/21 05:00 06/02/21 05:00 [facility] Medical History Anxiety Deafness in right ear (08/30/16) Essential hypertension (08/30/16) Fatigue due to sleep pattern disturbance (08/30/16) Idiopathic hypersomnia with long sleep time Menorrhagia with irregular cycle Mild persistent asthma without complication (08/30/16) Morbid obesity with body mass index (BMI) of 40.0 to 49.9 (08/30/16) Obstructive sleep apnea Surgical History Status post discectomy Status post surgery (09/15/15) Status post surgery (11/13/16) Family History Father Age: 83 Diabetes mellitus Hypertension Mother Cancer Diabetes mellitus Hypertension Social History household members: spouse Smoking Status: Former smoker alcohol intake: current Discharge Plan Discharge Plan Patient Disposition: Home Provider Discharge Comment: You were admitted due to tripping on cord and falling at home. Take medications as prescribed. Do not take your old medications. Do not take any aspirin or aspirin type pain relievers due to history of bleeding stomach ulcers. You can take Tylenol as needed (follow bottle instructions). We have discontinued your lisinopril and carvedilol due to drops in blood pressure and dizziness with standing. The metoprolol is new medication for BP control. The pantoprazole is to help healing of stomach ulcers. Fill your new prescriptions at [facility]. The folic acid, vitamin D and multivitamin are over the counter. Discharge orders & Medications Prescriptions: New pantoprazole 40 mg tablet,delayed release (DR/EC) 40 mg PO BID Qty: 60 0RF metoprolol succinate 25 mg tablet extended release 24 hr 25 mg PO DAILY 30 Days Qty: 30 0RF Continued fluticasone propion-salmeterol [Advair Diskus] 250 MCG/50 MCG blister with device 1 puff INH BID Qty: 60 2RF albuterol sulfate [Ventolin HFA] 90 MCG/PUFF HFA aerosol inhaler 2 puff INH Q4H PRNQty: 3 2RF acetaminophen 325 mg Tablet 650 mg PO Q6H PRN (Reason: Pain (Scale Score 4-6)) 0RF M.V.I. 1 tab PO DAILY 0RF cholecalciferol (vitamin D3) 1,000 unit 2,000 units PO DAILY 0RF polyethylene glycol 17 gram/dose 17 g PO DAILY PRN (Reason: Constipation) 0RF Flovent HFA 220 mcg/actuation Hfa Aerosol Inhaler 1 puff INHALATION DAILY 0RF folic acid 1 mg tablet 1 mg PO DAILY Qty: 30 0RF Discontinued pantoprazole 40 mg tablet 40 mg PO BID 0RF lisinopril 10 mg Tablet 10 mg PO DAILY 0RF Follow up/Referrals: William Lee MD [Primary Care Provider] - Diet/Activity/Treatments Diet: Regular Visit Report/Discharge Packet Instructions: How to Prevent Falls Discharge Data Primary Care Provider: William Lee Attending Provider: Yousuf Rivera VTE Deep Vein Thrombosis/Pulmonary Embolism Present on Admission: No
== END 2021-06-03 09:27 | disposition home or self-care (01) ==
LOC: ED 19:15 → AC 22:46
PROVIDERS: Emergency Medicine; Internal Medicine; Nurse Practitioner Family; Admitting Provider Family Medicine; Emergency Provider Emergency Medicine; PCP Family Medicine; Referring Provider Emergency Medicine; Visit Provider Family Medicine
DX: R29.6 Repeated falls (principal); I95.2 Hypotension due to drugs; R41.82 Altered mental status, unspecified; E87.6 Hypokalemia; I10 Essential (primary) hypertension; J45.909 Unspecified asthma, uncomplicated; E53.8 Deficiency of other specified B group vitamins; K20.90 Esophagitis, unspecified without bleeding; K25.9 Gastric ulcer, unspecified as acute or chronic, without hemorrhage or perforation; T46.4X5A Adverse effect of angiotensin-converting-enzyme inhibitors, initial encounter; Z87.891 Personal history of nicotine dependence; Z20.822 Contact with and (suspected) exposure to COVID-19
CPT/HCPCS: 36415; 70450; 71045; 73590; 73630; 80053; 80320; 81001; 82140; 82550; 82607; 82746; 83540; 83550; 83690; 83735; 84100; 84484; 85025; 85610; 85730; 87086; 87635; 93005; 96361; 96365; 96366; 96372; 96375; 97110; 97162; 97166; 97530; 99284; 99285; C9803; G0378; J1650; J2270